=== PATIENT | female | born 1940 | race Caucasian/White ===

== ENCOUNTER → 2023-04-27 12:50 | Outpatient (REF) | payer MEDICARE, OTHER, SELFPAY ==
[2023-04-27 15:48] LABS: ALT (SGPT) 26 U/L (0-35); AST (SGOT) 37 U/L (14-36); Albumin 3.9 g/dl (3.5-5.0); Alkaline Phosphatase 71 U/L (38-126); Blood Urea Nitrogen 17 mg/dl (7-17); Calcium 9.4 mg/dl (8.4-10.2); Carbon Dioxide 30 mmol/L (22-30); Chloride 94 mmol/L (98-107); Glucose 115 mg/dl (70-99); HDL Cholesterol 54 mg/dl; LDL Cholesterol, Calculated 70 mg/dl; Potassium 4.1 mmol/L (3.5-5.1); Sodium 133 mmol/L (135-145); Total Bilirubin 1.1 mg/dl (0.2-1.3); Total Cholesterol 149 mg/dl (50-199); Total Protein 7.2 g/dl (6.3-8.2); Triglyceride 128 mg/dl (10-149); Very Low Density Lipoprotein 25 mg/dl (0-30); eGFR > 60.00
[2023-04-28 08:24] LABS: Glycohemoglobin (HgbA1c) 6.4 % (4.0-5.6)
== END ==
LOC: HWLAB 12:50
PROVIDERS: ATTENDING PHYSICIAN Internal Medicine
DX: E78.5 Hyperlipidemia, unspecified (principal); R73.01 Impaired fasting glucose
CPT/HCPCS: 36415; 80053; 80061; 83036

== ENCOUNTER → 2023-06-05 13:21 | Outpatient (REF) | payer MEDICARE, OTHER, SELFPAY ==
[2023-06-05 17:15] LABS: TSH Reflex To Free T4 1.28 uIU/ml (0.47-4.68)
[2023-06-05 17:34] LABS: Vitamin B12 996 pg/ml (239-931)
[2023-06-09 16:40] LABS: Syphilis/T. pallidum Ab Reflex Negative (Negative)
== END ==
LOC: HWLAB 13:21
PROVIDERS: ATTENDING PHYSICIAN Psychiatry & Neurology Neurology; FAMILY PHYSICIAN Internal Medicine
DX: G30.9 Alzheimer's disease, unspecified (principal); F02.80 Dementia in other diseases classified elsewhere, unspecified severity, without behavioral disturbance, psychotic disturbance, mood disturbance, and anxiety
CPT/HCPCS: 36415; 82607; 84443; 86780

== ENCOUNTER → 2023-06-09 13:20 | Outpatient (REF) | payer MEDICARE, OTHER, SELFPAY | LOC: PAVMRI 13:20 | PROVIDERS: ATTENDING PHYSICIAN Psychiatry & Neurology Neurology; FAMILY PHYSICIAN Internal Medicine | DX: G30.9 Alzheimer's disease, unspecified (principal); F02.80 Dementia in other diseases classified elsewhere, unspecified severity, without behavioral disturbance, psychotic disturbance, mood disturbance, and anxiety | CPT/HCPCS: 70553; A9575 ==

== ENCOUNTER 2023-10-29 20:01 | Inpatient (IN) | payer MEDICARE, OTHER, SELFPAY ==
[2023-10-29] VITALS (25 sets, daily range): BP systolic 104–267; BP diastolic 50–114; BMI 31.6; BMI 29.5
[2023-10-29 17:43] LABS: % Basophils 0.5 % (0-2); % Eosinophils 1.7 % (0-6); % Immature Granulocytes 0.2 % (0-0.5); % Lymphocytes 23.6 % (20.5-51.1); % Monocytes 9.3 % (1.7-9.3); % Neutrophils 64.7 % (42.2-75.2); Absolute Eosinophils 0.1 10^3/uL (0-0.7); Absolute Lymphocytes 1.4 10^3/uL (1.2-3.4); Absolute Monocytes 0.6 10^3/uL (0.1-0.6); Absolute Neutrophils 3.9 10^3/uL (1.4-6.5); Hematocrit 41.7 % (37.0-47.0); Hemoglobin 14.4 g/dL (12.0-16.0); Mean Corp Hgb Conc. 34.5 g/dL (33.0-37.0); Mean Corpuscular Hgb 31.8 pg (27.0-31.0); Mean Corpuscular Volume 92.1 fL (81.0-99.0); Mean Platelet Volume 9.6 fL (7.4-10.4); Nucleated Red Blood Cells % 0 %; Platelet Count 175 10^3/uL (130-400); Red Blood Cell Count 4.53 10^6/uL (4.20-5.40); Red Cell Dist. Width 12.3 % (11.5-14.5); White Blood Cell Count 6.1 10^3/uL (4.8-10.8)
[2023-10-29 17:50] LABS: ALT (SGPT) 26 U/L (0-35); AST (SGOT) 40 U/L (14-36); Albumin 4.5 g/dl (3.5-5.0); Alkaline Phosphatase 91 U/L (38-126); Blood Urea Nitrogen 11 mg/dl (7-17); Carbon Dioxide 30 mmol/L (22-30); Chloride 92 mmol/L (98-107); Estimated Creatinine Clearance 60 ml/min; Glucose 136 mg/dl (70-99); Potassium 3.9 mmol/L (3.5-5.1); Sodium 132 mmol/L (135-145); Total Protein 7.5 g/dl (6.3-8.2); eGFR > 60.00
[2023-10-29 17:53] LABS: COVID-19 Antigen Negative (Negative)
[2023-10-29 17:57] LABS: Urine Albumin Trace (Neg - Trace); Urine Bilirubin Negative (Negative); Urine Character Clear (Clear); Urine Color Yellow; Urine Glucose Negative (Negative); Urine Ketone 1+ (Negative); Urine Leukocyte Trace (Negative); Urine Nitrite Negative (Negative); Urine Occult Blood Negative (Negative); Urine Urobilinogen Negative (Neg - 1+)
[2023-10-29 18:18] LABS: Urine Red Blood Cell 0-2 /HPF (0-2)
[2023-10-29 18:19] LABS: Urine Bacteria Many (Negative); Urine White Cell 16-20 /HPF (0-5)
[2023-10-29] MEDS: LOPRESSOR 5 MG IV (18:58)
[2023-10-29] MEDS: NITRO-BID 1 INCH TOPICAL (19:00)
[2023-10-29] MEDS: LOPRESSOR 25 MG PO (19:00)
--- NOTE | 2023-10-29 19:08 | ED.GENMED ---
History of Present Illness
General
Chief Complaint: Weakness
Source: patient, records, spouse and family
Exam Limitations: none
Time Seen by Provider: 10/29/23 18:03
Nursing documentation reviewed up to this point in time: agreed with
History of Present Illness
History of Present Illness:
Patient is an 83-year-old female who presents to the emergency department After having a feeling of dread and near . Patient was excessively weak with feeling a knot in her chest. This occurred at 3:30 PM. Patient was hot and cold. Patient
denied any diaphoresis. Patient has had a chronic cough with postnasal drip that seems to have gotten worse recently. Patient complained of feeling short of breath. Patient denied any chest pain or palpitations. Patient denied headache, visual
disturbances, speech difficulties, focal weakness or ataxia. Patient felt very weak and continues to feel weak. Patient chronically has diminished appetite but denies any nausea, vomiting or diarrhea. Patient denies any abdominal pain. Patient
denies any leg pain or swelling.
Past History
Past History
ED Past Medical History: HTN, Hypercholesterolemia and Other (Patient has a history of back pain, scoliosis, spinal stenosis,PNA, pancreatic cyst)
ED Past Surgical History: and Other (history of a lumbar spinal fusion, cervical fusion)
Patient has exhibited threatening behavior?: No
PSI?: No
Social History
Tobacco: Non-smoker
Alcohol: None
Drug: None
Personal:
Living: with family
Employment: Retired
Review of Systems
Review of Systems
All Other Systems: ROS reviewed and negative except as documented in HPI and ROS
Constitutional: Reports fatigue; Denies fever or chills
EENT: Reports runny nose
Respiratory: Reports cough and trouble breathing
Cardiac: Reports no symptoms
ABD/GI: Reports constipated and anorexia; Denies abdominal pain, nausea, vomiting or diarrhea
: Reports no symptoms
Musculoskeletal: Denies edema
Skin: Reports no symptoms
Neurological: Reports no symptoms
Hematologic/Lymphatic: Reports no symptoms
Phy Exam
Physical Exam
Physical Exam:
Physical Exam
General: mild to moderate distress, alert and appropriate, well nourished, well hydrated
HENT: Normocephalic, supple with no lymphadenopathy, no thyromegaly
Eyes: Clear sclera, conjuctiva without injection
Heart: Regular rhythm and rate. No S3, S4. No murmur. No NVD, bruit
Lungs: No respiratory distress, no stridor, lung sounds clear and equal bilaterally
Abdomen: Soft, nontender, no organomegaly, BS good
Neuro: Alert and usual mental status, CN II - XII intact, no motor focality
Skin: no rash
Psychiatric: well kept. interactive and cooperative
Extremities: No edema, cyanosis, tenderness
Course
Orders/Labs/Results
Orders:
Orders
10/29/23 17:20
Electrocardiogram (*1) Urgent
Reason for Study: Fatigue / Weakness
10/29/23 17:21
EKG- Treatment ONCE
10/29/23 17:23
COVID-19 Antigen Urgent
Source: Nasal Swab
Complete Blood Count/With Diff Urgent
Comprehensive Metabolic Panel Urgent
Urinalysis Reflex To Culture Urgent
Date Specimen was Collected: 10/29/23
Time Specimen was Collected: 17:20
Urine Microscopic Reflex Cult Urgent
Urine Culture Urgent
ALEXANDER Source: U
Specimen Description:
Date Specimen was Collected: 10/29/23
Time Specimen was Collected: 17:20
10/29/23 18:08
CT Head W/o Iv Contrast Urgent
Comment:
Reason For Exam: hnt, nausea
10/29/23 18:39
Electrocardiogram (*1) Urgent
Reason for Study: Hypertension, Benign
Troponin I Urgent
10/29/23 18:49
Metoprolol [Lopressor] 25 mg PO NOW STA
Metoprolol [Lopressor] 5 mg IV NOW STA
Nitroglycerin Ointment [Nitro-Bid] 1 inch TOPICAL NOW STA
Abnormal Lab Results
10/29/23
17:23
MCH 31.8 H pg
(27.0-31.0)
Sodium 132 L mmol/L
(135-145)
Chloride 92 L mmol/L
(98-107)
Creatinine 0.5 L mg/dL
(0.6-1.0)
Glucose 136 H mg/dl
(70-99)
AST 40 H U/L
(14-36)
Urine Ketones 1+ A
(Negative)
Leukocyte Esterase Rfl Trace A
(Negative)
Urine WBC (Reflex) 16-20 A /HPF
(0-5)
Urine Bacteria (Reflex) Many A
(Negative)
10/29/23 17:23
10/29/23 17:23
Vital Signs
Initial and Last Documented VS:
Initial Vital Signs
Temp Pulse Resp BP Pulse Ox
97.9 F 92 14 227/94 95
10/29/23 17:13 10/29/23 17:13 10/29/23 17:13 10/29/23 17:13 10/29/23 17:13
Last Documented Vital Signs
Temp Pulse Resp BP Pulse Ox
97.9 F 89 19 187/80 95
10/29/23 17:13 10/29/23 19:00 10/29/23 18:45 10/29/23 19:00 10/29/23 18:45
*Radiology
Radiology exam reviewed: preliminary read by ED provider (CT of the head does not show anything acute)
*Pulse Oximetry
Patient hypoxic: no
*EKG
Interpreted by ED Provider?: Yes
EKG Intrepretation Date: 10/29/23
EKG Intrepretation Time: 19:14
Interpretation: abnormal
Comparison EKG: changes noted
Heart Rate: 74
Rate: normal
Rhythm: sinus
[place]: left axis deviation
Interval: normal QT interval and first degree heart block
QRS Pattern: left vent hypertrophy
Ischemia: no ischemia
*Production Machine Operator Interpretation
Rate: normal
Interpretation: normal
Heart Rate: 82
Rhythm: sinus
*Critical Care Note
Total Time (30-74mins, 75-104mins- exclusive of procedures): 45 minutes
ED Attending Note
-
Portions of this chart may have been created with voice recognition software.� Occasional wrong word or��sound alike� substitutions may have occurred due to the inherent limitations of voice recognition software.
Discharge Plan
Departure
Patient Disposition: Admit
Date of Disposition: 10/29/23
Time of Disposition: 19:14
Admit to: Telemetry
Presentation/result/management discussed w/ accepting MD/DO: Hospitalist
Patient with high blood pressure during this ER visit?: Yes
Condition: Serious
Covid-19: Negative COVID-19
Discharge Problem:
Hypertension, Chest pain
Prescriptions:
No Action
atorvastatin 10 MG tablet
40 mg PO DAILY
hydrochlorothiazide 12.5 MG capsule
12.5 mg PO QPM
aspirin [Lo-Dose Aspirin] 81 MG tablet,delayed release (DR/EC)
81 mg PO QPM
fluoxetine 20 MG capsule
20 mg PO DAILY
Centrum Adults Tablet
1 tab PO DAILY
cephalexin 500 MG capsule
500 mg PO BID Qty: 14 0RF
Referrals:
UNKNOWN - PT DOES,NOT KNOW [Family Provider] -
Interventions
Interventions:
*Neglect/Abuse Screening Last Done: 10/29/23 17:09
ED- Fall Risk Assessment Last Done: 10/29/23 17:27
*ED COVID-19 Vaccine History Last Done: 10/29/23 17:09
ED- Cardiac Assessment Last Done: 10/29/23 17:27
ED- Neurological Assessment Last Done: 10/29/23 17:27
ED- Pulmonary Assessment Last Done: 10/29/23 17:27
Discharge Date and Time
Print Language: NIUEAN
[2023-10-29 19:41] LABS: Troponin I < 0.012 ng/ml
--- NOTE | 2023-10-29 19:42 | HPS.HSE ---
Addendum entered and electronically signed by Rosie Vela MD 10/29/23 20:52:
Patient is DNR/DNI.
Original Note:
Family Physician
-
Family Physician: NOT KNOW UNKNOWN - PT DOES
Chief Complaint
-
chest knot, weakness
History of Present Illness
83-year-old female past medical history of whitecoat hypertension not on medication in 20 years, hypercholesteremia, spinal stenosis, scoliosis, hepatic steatosis presenting with feeling of dread and as if she was going to . She felt very weak
with the feeling of a knot in her chest which started this afternoon. Pain did not radiate anywhere. She felt intermittently hot and cold but denies sweating. She has chronic cough with postnasal drip that is recently gotten worse. She
complained of shortness of breath with the chest pain. She denies any palpitations. She denies headache, visual symptoms, speech difficulty, focal weakness or ataxia or numbness or tingling. No facial droop was noted. She has chronically
decreased appetite and had some nausea and dry heaving without vomiting or diarrhea. She denies any abdominal pain. She denies any lower extremity edema.
She was given nitroglycerin which improved chest pain.
She had whitecoat hypertension more than 20 years ago but has not been on medication since then.
She denies smoking or alcohol use.
Her mother had a heart attack. Her father had a stroke.
Medical History
Past Medical History
Past Medical History: Reports Other (whitecoat hypertension not on medication in 20 years, hypercholesteremia, spinal stenosis, scoliosis, hepatic steatosis)
Past Surgical History: Reports Orthopedic
Social History
Tobacco: Non-smoker
Alcohol: None
Drug: None
Family History
Family History: Other (Her mother had a heart attack. Her father had a stroke.)
Allergies / Home Medications
Allergies reflects when Allergies were last updated in [email or web address]@.
Home Medications with original date entered in [email or web address]@
Allergy/Medication List:
Allergies
Allergy/AdvReac Type Severity Reaction Status Date / Time
codeine Allergy Vomiting Verified 10/29/23 17:12
diazepam [From Valium] Allergy hallucinati Verified 10/29/23 17:12
ons
hydroxyzine HCl Allergy vomiting Verified 10/29/23 17:12
[From Vistaril]
hydroxyzine pamoate Allergy vomiting Verified 10/29/23 17:12
[From Vistaril]
meperidine HCl [From Demerol] Allergy vomiting Verified 10/29/23 17:12
morphine [Morphine] Allergy PT STATES Verified 10/29/23 17:12
IT WILL
KILL HER
oxycodone HCl [From Percocet] Allergy CHANGE IN Verified 10/29/23 17:12
LOC
propoxyphene napsylate Allergy vomiting Verified 10/29/23 17:12
[From Darvocet-N 100]
Home Medications
fluoxetine 20 mg capsule 20 mg PO DAILY 08/02/18
aspirin 81 mg chewable tablet 81 mg PO DAILY 10/29/23
memantine 10 mg tablet 10 mg PO BID 10/29/23
inmdtppb-eeb-dcusm acid 0.4 mg-lycopene 300 mcg-lutein 250 mcg tablet (Centrum Silver) 1 tab PO DAILY 10/29/23
Review of Systems
-
History Source: Patient
A 12 point ROS was completed and negative except as noted: Yes
Constitutional: Reports No Symptoms
EENT: Reports No Symptoms
Respiratory: Reports See HPI
Cardiac: Reports See HPI
Abdomen/GI: Reports No Symptoms
: Reports No Symptoms
Musculoskeletal: Reports No Symptoms
Skin: Reports No Symptoms
Neurological: Reports See HPI
Endocrine: Reports No Symptoms
Hematologic/Lymphatic: Reports No Symptoms
Psych: Reports No Symptoms
Physical Exam
Vital Signs
Vital Signs
Temp Pulse Resp BP Pulse Ox
97.9 F 89 19 187/80 95
10/29/23 17:13 10/29/23 19:00 10/29/23 18:45 10/29/23 19:00 10/29/23 18:45
Physical Exam
General: Well Developed, Well Nourished and No Apparent Distress
HEENT: NormoCephalic, Moist mucous membranes and Atraumatic
Respiratory: Clear
Cardiac: S1/S2 and Regular Rhythm; No Murmur or Rub
GI: Soft, Non Tender, Non Distended and Normal Bowel Sounds; No Organomegaly
Rectal: Deferred by Provider
Musculoskeletal: No Clubbing, No Cyanosis and No Edema
Skin: No Rash
Neuro: Nonfocal/grossly intact
Laboratory Results
-
10/29/23 17:23
10/29/23 17:23
Laboratory Results
Total Bilirubin 1.0 mg/dl (0.2-1.3) 10/29/23 17:23
AST 40 U/L (14-36) H 10/29/23 17:23
ALT 26 U/L (0-35) 10/29/23 17:23
Alkaline Phosphatase 91 U/L (38-126) 10/29/23 17:23
Troponin I < 0.012 ng/ml 10/29/23 19:08
Data Reviewed
-
Lab Data: Labs Reviewed by me
Old Records: Reviewed
Impression/Plan
-
IMPRESSION:
PLAN:
# Hypertensive urgency/emergency associate with chest discomfort
#History of white coat hypertension not on treatment
-Chest discomfort now resolved
-No signs or symptoms of CVA
-EKG showing nonspecific T wave inversions
-CT head shows no acute abnormality
-Blood pressure as high as 267/113
-Troponin pending
-Check chest x-ray
-IV hydralazine to be given, will need to start nitroglycerin drip if no improvement
-Continue aspirin
Hypercholesterolemia
-Continue statin
Spinal stenosis status post spine surgeries
Scoliosis
Dementia
-Continue memantine
Anxiety/depression
-Continue fluoxetine
Hepatic steatosis
Full code
DVT prophylaxis�heparin
Regular diet
[2023-10-29] MEDS: APRESOLINE 10 MG IV (20:05)
[2023-10-29] MEDS: LOW STRENGTH ASPIRIN 324 MG PO (20:06)
[2023-10-29] MEDS: NITROGLYCERIN PREMIX 250 IV (22:04)
[2023-10-29] MEDS: NAMENDA PO (22:09)
[2023-10-29] MEDS: HEPARIN 5000 UNITS SC (22:09)
--- NOTE | 2023-10-29 22:20 | PTCARENOTE ---
Pt arrived to floor from ED, received verbal report from DIETER Padilla. AAOx3, forgetful @ x's. Resting and arouses to verbal stimuli. NS on monitor, hr 60-80s. Pt c/o nausea and vomited twice. Nausea relieved per pt. BP 188/81 and started on
nitroglycerine gtt to keep SBP >160. running @ 5 mcg/min. Titrated per protocol (see worklist). Pt resting in bed with family at bedside and call berg in reach.
[2023-10-29 23:09] LABS: Troponin I < 0.012 ng/ml
[2023-10-30] VITALS (34 sets, daily range): BP systolic 99–206; BP diastolic 40–108; BMI 29.5
--- NOTE | 2023-10-30 00:35 | PTCARENOTE ---
At 2315 pt's BP was 181/81, gtt increased per protocol (see worklist). BP decreased over next hour and @ 00:00 it was 108/55, gtt put on hold. Reached out to Cristela, INSPECTOR PACKAGER and Rx obtained to hold gtt.
[2023-10-30 04:11] LABS: % Basophils 0.3 % (0-2); % Immature Granulocytes 0.4 % (0-0.5); % Lymphocytes 14.3 % (20.5-51.1); Absolute Lymphocytes 1.1 10^3/uL (1.2-3.4); Absolute Monocytes 0.6 10^3/uL (0.1-0.6); Absolute Neutrophils 6.2 10^3/uL (1.4-6.5); Hematocrit 41.3 % (37.0-47.0); Hemoglobin 14.6 g/dL (12.0-16.0); Mean Corp Hgb Conc. 35.4 g/dL (33.0-37.0); Mean Corpuscular Hgb 31.7 pg (27.0-31.0); Mean Corpuscular Volume 89.8 fL (81.0-99.0); Mean Platelet Volume 9.4 fL (7.4-10.4); Nucleated Red Blood Cells % 0 %; Platelet Count 200 10^3/uL (130-400); Red Cell Dist. Width 12.2 % (11.5-14.5)
[2023-10-30 04:30] LABS: ALT (SGPT) 25 U/L (0-35); AST (SGOT) 38 U/L (14-36); Albumin 4.4 g/dl (3.5-5.0); Alkaline Phosphatase 79 U/L (38-126); Blood Urea Nitrogen 15 mg/dl (7-17); Calcium 9.3 mg/dl (8.4-10.2); Carbon Dioxide 23 mmol/L (22-30); Chloride 92 mmol/L (98-107); Estimated Creatinine Clearance 58 ml/min; Glucose 117 mg/dl (70-99); Potassium 4.5 mmol/L (3.5-5.1); Sodium 129 mmol/L (135-145); Total Protein 7.3 g/dl (6.3-8.2); eGFR > 60.00
[2023-10-30 04:35] LABS: Troponin I < 0.012 ng/ml
--- NOTE | 2023-10-30 08:19 | W.PN.HOSP.TC ---
Today's Communication/Plan
-
Continue beta doc
Assessment / Plan
Assessment / Plan
Physical Exam
General: Well Developed, Well Nourished and No Apparent Distress
HEENT: Normocephalic, Moist mucous membranes and Atraumatic
Respiratory: Clear
Cardiac: S1/S2 and Regular Rhythm; No Murmur or Rub
GI: Soft, Non Tender, Non Distended and Normal Bowel Sounds
Musculoskeletal: No Cyanosis and No Edema
Skin: Warm. Dry.
Neuro: Nonfocal/grossly intact

Assessment/Plan
#Hypertensive urgency/emergency associate with chest discomfort and feeling of dread
#History of white coat hypertension not on treatment
-Chest discomfort now resolved
-No signs or symptoms of CVA
-EKG showing nonspecific T wave inversions
-CT head shows no acute abnormality
-Blood pressure as high as 267/113 around the time of admission
-Troponins negative so far. EKG did not suggest ACS.
-Continue aspirin
-Nitorglycerin drip given
-Cardiology consulted
-NTG paste 0.5 inch and Lopressor 12.5mg BID ordered. Appreciate cardiology.
-Check echocardiogram
#Weakness
-Possibly secondary to severe hypertension
-Patient does have bacteriuria, but will treat this as asymptomatic bacteriuria for now and monitor patient
#Hyponatremia
-Urine sodium, and urine&serum osmoles ordered
-Given sodium 129 and fatigue/weakness, consulted nephrology, appreciate recommendations
-PO FR 40 ounces daily
Hypercholesterolemia
-Continue statin
Spinal stenosis status post spine surgeries
Scoliosis
Dementia
-Continue memantine
Anxiety/depression
-Continue fluoxetine
Hepatic steatosis
Full code
DVT prophylaxis�heparin
Regular diet
Anticipated Discharge: 24 - 48 hours
Subjective/Interval History
-
Date of Service: October 30, 2023
Patient was seen and examined. Her systolic blood pressure increased to the 200s this morning and she was more tired. She denied any chest pain this morning.
Objective Data
-
Labs:
Laboratory Results
10/30/23
03:41
WBC 8.0
Hgb 14.6
Hct 41.3
Plt Count 200
Sodium 129 L
Potassium 4.5
Chloride 92 L
Carbon Dioxide 23
BUN 15
Creatinine 0.5 L
Glucose 117 H
Calcium 9.3
Total Bilirubin 1.0
AST 38 H
ALT 25
Alkaline Phosphatase 79
Vital Signs:
Vital Signs
Temp Pulse Resp BP Pulse Ox
98.3 F 57 14 151/57 97
10/30/23 07:30 10/30/23 06:00 10/30/23 06:00 10/30/23 06:00 10/30/23 06:00
I&O
10/29/23 10/30/23 10/31/23
06:59 06:59 06:59
Output Total 800 / 800
Balance -800 / -800
[2023-10-30] MEDS: PROZAC 20 MG PO (10:05)
[2023-10-30] MEDS: THERAGRAN 1 TABLET PO (10:06)
[2023-10-30] MEDS: LOW STRENGTH ASPIRIN 81 MG PO (10:06)
[2023-10-30] MEDS: HEPARIN 5000 UNITS SC ×2 (10:06→21:13)
[2023-10-30] MEDS: NAMENDA 10 MG PO ×2 (10:06→21:12)
[2023-10-30] MEDS: NITROGLYCERIN PREMIX 250 IV (10:48)
--- NOTE | 2023-10-30 10:59 | PTCARENOTE ---
Patient's BP's more elevated this AM 196/69, 199/74. Dr. Jackson made aware. Order obtained to restart Nitro drip. Drip infusing at 5mcg/hr/ 3.8/mls/hr via right wrist INT. BP at this time 186/61. BP 5 minutes later 149/78. Patient denies
any chest pain or discomfort. Patient resting in bed. Family in room at bedside.
--- NOTE | 2023-10-30 12:20 | CON.CAR ---
Addendum entered and electronically signed by Dionte Curiel MD 10/30/23 14:03:
I saw and examined the patient.
The BUSINESS DIRECTOR's note was reviewed and I agree with the note.
83-year-old woman with a history of dementia, spinal stenosis, hyperlipidemia. Also prior history of hypertension but has not been on medications for many years. Patient presented with fatigue and not feeling well very vague symptoms was noted to
be hypertensive on presentation there was also report of her having some chest discomfort she reports a focal area of chest discomfort which is currently not present and currently without reproducible pain. Initially systolic blood pressures were
in the 200s in the ER she was given some IV nitro but is only been on 5 mcg and currently systolic blood pressures are in the 150s. Troponins have been negative.
-Hypertension unclear what her baseline blood pressure is she was severely hypertensive and this may have also been driven by the fact that she was not feeling well
-Agree with changing from IV nitro to Nitropaste as we assess her chest discomfort and troponins
-Metoprolol 12.5 twice daily
-Serial troponins.
-Etiology of chest symptoms are unclear. Would continue with treatment plan noted above
-Chief complaint was fatigue weakness and not feeling well. Exact cause of that symptom is not clear UTI and hyponatremia may be contributing factors defer to hospitalist regarding treatment of both of these issues..
Original Note:
Consultation
Consultation Request
Date/Time Consultation Requested: 10/30/23 10:45a
Date/Time Consultation Performed: 10/30/23 11:30a
Requesting Provider: Dr. Jackson
Performing Provider: DORON Pinto for Dr. Curiel
Reason for Consultation: HTN and chest pain
Medical History
-
Chief Complaint: weakness, chest pain
History of Present Illness:
Mrs. Moreno is an 83 yo female with HTN (not on medication for 20 years), HLD, dementia, spinal stenosis, scoliosis, and hepatic steatosis, who presents to the ER from home with c/o fatigue/weakness and chest pain described as a knot in her
midsternal chest. Chest pain lasted 30 mins and resolved after SL NTG in the ER, so she was started on a IV NTG gtt. She also had HTN emergency with BP 227/94. She is admitted to the hospitalist service and we are consulted for chest pain and
HTN. Her BP has improved with IV NTG gtt. She and her family do not remember which medications she was previously on for HTN. Currently she denies any cardiac complaints.
Past Medical History
Past Medical History: Other (as above)
Past Surgical History: Orthopedic
Social History
Tobacco: Non-Smoker
Alcohol: None
Personal:
Living: With Family
Family History
Family History: Reviewed & Not Pertinent
Allergies / Home Medications
Allergy/AdvReac Type Severity Reaction Status Date / Time
codeine Allergy Vomiting Verified 10/29/23 17:12
diazepam [From Valium] Allergy hallucinati Verified 10/29/23 17:12
ons
hydroxyzine HCl Allergy vomiting Verified 10/29/23 17:12
[From Vistaril]
hydroxyzine pamoate Allergy vomiting Verified 10/29/23 17:12
[From Vistaril]
meperidine HCl [From Demerol] Allergy vomiting Verified 10/29/23 17:12
morphine [Morphine] Allergy PT STATES Verified 10/29/23 17:12
IT WILL
KILL HER
oxycodone HCl [From Percocet] Allergy CHANGE IN Verified 10/29/23 17:12
LOC
propoxyphene napsylate Allergy vomiting Verified 10/29/23 17:12
[From Darvocet-N 100]
�Medication �Instructions �Recorded �Confirmed �Type
fluoxetine 20 mg capsule 20 mg PO DAILY Mental 08/02/18 10/29/23 History
Health/Anxiety
aspirin 81 mg chewable tablet 81 mg PO DAILY Blood Clot 10/29/23 10/29/23 History
Prevention/Tx
memantine 10 mg tablet 10 mg PO BID Mental Health/Anxiety 10/29/23 10/29/23 History
jxmzwltq-qfl-mrkrr acid 0.4 1 tab PO DAILY Supplement 10/29/23 10/29/23 History
mg-lycopene 300 mcg-lutein 250 mcg
tablet (Centrum Silver)
Review of Systems
-
History Source: Patient
All other systems: Negative unless noted
Physical Exam
Vital Signs
Temp Pulse Resp BP Pulse Ox
98.3 F 62 15 159/59 91
10/30/23 07:30 10/30/23 12:00 10/30/23 12:00 10/30/23 12:00 10/30/23 12:00
Lab Results
10/30/23 03:41
10/30/23 03:41
Troponin I < 0.012 ng/ml 10/30/23 03:41
Physical Exam
General: Well Developed and No Apparent Distress
HEENT: Normocephalic, Anicteric and Moist Mucous Membranes
Respiratory: Clear and Non Labored Respirations
Cardiac: S1/S2 and Regular Rhythm
Breast: Deferred by me
GI: Soft, Non Tender, Non Distended and Normal Bowel Sounds
Rectal: Deferred by Provider
Genito-urinary: Clear Urine
Musculoskeletal: No Clubbing, No Cyanosis and No Edema
Skin: Warm and Dry
Neuro: AO x 3
Psych: Calm
Impression / Plan
-
Chest pain - acute in the setting of HTN emergency.
- resolved with SL NTG in the ER and no recurrence.
- troponin x3 <0.012 and EKG w/o ischemia.
- treat HTN.
- check echo.
HTN emergency - BP 227/94 on arrival to ER.
- HTN not treated for 20 years.
- improved with IV Nitro gtt, now off.
- NTG paste 0.5 inch and Lopressor 12.5mg BID ordered.
- monitor closely.
- check echo.
- head CT negative.
Dementia - followed by neurology.
- on [place].
Data Reviewed
-
EKG: Tracing Personally Visualized and interpreted (SR with first degree AVB, 82 bpm, left axis and LVH.)
CT Scan: Report Reviewed by me (head: negative for acute abn)
Medical Tests (Nuc Med, Echo etc): Report Reviewed by me (echo 11/2020: nl biventricular size/function, no RWMA, mild cLVH, mild/mod MR.)
Labs: Labs Reviewed by me
Old Records: Reviewed
[2023-10-30 12:36] LABS: Osmolality Serum 267 mOsm/kg (275-300)
--- NOTE | 2023-10-30 12:50 | PTCARENOTE ---
Nitro drip discontinues as per cardiology. Nitro paste and lopressor ordered.
[2023-10-30] MEDS: NITRO-BID 0.5 INCH TOPICAL (12:51)
[2023-10-30 12:52] LABS: Troponin I < 0.012 ng/ml
[2023-10-30] MEDS: LOPRESSOR 12.5 MG PO ×2 (12:52→22:40)
[2023-10-30] MEDS: APRESOLINE 10 MG IV (14:53)
--- NOTE | 2023-10-30 14:53 | CM ---
Reviewed the chart notes and spoke with the patient and her daughter at the bedside. The patient resides with her spouse in a split level home with no steps to enter. The patient has two stair glides to upper levels. The patient uses a cane in
home and a rolling walker outside. The patient has a shower chair and grab bars. The patient has not had VN nor been to a SNF. The patient confirmed her pharmacy of choice is the [facility]. CM continues to be available to patient/family
and is monitoring medical plan for needs at discharge.
Plan: Discharge plans will depend on the patient's progress.
--- NOTE | 2023-10-30 16:20 | PTCARENOTE ---
Nitro drip d/c as per cardiology. Order obtained for Nitro paste and lopressor. Medicated patient with prn dose of hydralazine for sbp > 170. SB's have been below 160 since. Appetite poor and patient has been drowsy all day. IV fluids infusing as
per nephrology. Urine studies sent. Family in room at bedside.
--- NOTE | 2023-10-30 17:00 | W.CON.NEPH ---
Consultation
-
Date/Time Consultation Requested: 10/30/23 1500
Date/Time Consultation Performed: 10/30/23 1700
Requesting Provider: Dr. Sutton
Performing Provider: Dr. Wallace
Reason for Consultation: Hyponatremia
Medical History
-
Chief Complaint: Fatigue, chest pain
History of Present Illness:
This is an 83-year-old female who has hypertension though not on medications, chronic hyponatremia also on no medications nor apparently any fluid restriction, who does have anxiety depression on Prozac. She came to the emergency room because of
fatigue and weakness with chest pain and midsternal discomfort. She was on a nitroglycerin drip in the emergency room. She had significant hypertension with blood pressures over 200 systolic. She was given IV medications to control her blood
pressures. Her sodium level typically runs around 132 as an outpatient and was noted to be 125 in the emergency room for which we are asked to assist with management of. Her family says that she has not felt well with nausea and retching as well
as with poor oral intake at least over the last day and a half. She also appears to be quite constipated according to nursing.
Past Medical History
Hypertension, hyperlipidemia, dementia, spinal stenosis, scoliosis, fatty liver, depression anxiety, orthopedic surgery
Social History
Tobacco: Non-Smoker
Alcohol: None
Family History
Family History: Not Pertinent
Allergies / Home Medications
Allergy/AdvReac Type Severity Reaction Status Date / Time
codeine Allergy Vomiting Verified 10/29/23 17:12
diazepam [From Valium] Allergy hallucinati Verified 10/29/23 17:12
ons
hydroxyzine HCl Allergy vomiting Verified 10/29/23 17:12
[From Vistaril]
hydroxyzine pamoate Allergy vomiting Verified 10/29/23 17:12
[From Vistaril]
meperidine HCl [From Demerol] Allergy vomiting Verified 10/29/23 17:12
morphine [Morphine] Allergy PT STATES Verified 10/29/23 17:12
IT WILL
KILL HER
oxycodone HCl [From Percocet] Allergy CHANGE IN Verified 10/29/23 17:12
LOC
propoxyphene napsylate Allergy vomiting Verified 10/29/23 17:12
[From Darvocet-N 100]
�Medication �Instructions �Recorded �Confirmed �Type
fluoxetine 20 mg capsule 20 mg PO DAILY Mental 08/02/18 10/29/23 History
Health/Anxiety
aspirin 81 mg chewable tablet 81 mg PO DAILY Blood Clot 10/29/23 10/29/23 History
Prevention/Tx
memantine 10 mg tablet 10 mg PO BID Mental Health/Anxiety 10/29/23 10/29/23 History
kmenyyyb-ryx-szchv acid 0.4 1 tab PO DAILY Supplement 10/29/23 10/29/23 History
mg-lycopene 300 mcg-lutein 250 mcg
tablet (Centrum Silver)
Review of Systems
-
Abdominal/midsternal discomfort. Nausea. Decreased oral intake. Constipation.
All other systems: Negative unless noted
Physical Exam
Vital Signs
Vital Signs
Temp Pulse Resp BP Pulse Ox
98.3 F 67 20 186/73 95
10/30/23 11:14 10/30/23 14:00 10/30/23 14:00 10/30/23 14:00 10/30/23 14:00
Lab Results
WBC 8.0 10^3/uL (4.8-10.8) 10/30/23 03:41
RBC 4.60 10^6/uL (4.20-5.40) 10/30/23 03:41
Hgb 14.6 g/dL (12.0-16.0) 10/30/23 03:41
Hct 41.3 % (37.0-47.0) 10/30/23 03:41
Plt Count 200 10^3/uL (130-400) 10/30/23 03:41
Sodium 129 mmol/L (135-145) L 10/30/23 03:41
Potassium 4.5 mmol/L (3.5-5.1) 10/30/23 03:41
Chloride 92 mmol/L (98-107) L 10/30/23 03:41
Carbon Dioxide 23 mmol/L (22-30) 10/30/23 03:41
BUN 15 mg/dl (7-17) 10/30/23 03:41
Creatinine 0.5 mg/dL (0.6-1.0) L 10/30/23 03:41
eGFR > 60.00 10/30/23 03:41
Glucose 117 mg/dl (70-99) H 10/30/23 03:41
Calcium 9.3 mg/dl (8.4-10.2) 10/30/23 03:41
Albumin 4.4 g/dl (3.5-5.0) 10/30/23 03:41
Physical Exam
Patient is awake alert oriented and in no distress. Mood and affect were pleasant, insight and judgment were good. Pupils are equal round and reactive to light, extraocular movements are intact, sclera were anicteric. Hearing was normal, ears and
nose are intact. Oropharynx was clear. Neck was supple with trachea midline and no thyromegaly. Heart was regular rate and rhythm without rubs. Lower extremities without edema. Lungs were with rales at the bases to auscultation bilaterally and
with normal excursion. Abdomen was soft, nontender, with normal active bowel sounds, and no hepatosplenomegaly. Skin was without rash and with normal turgor.
Data Reviewed
-
Radiology: Image Personally Visualized and interpreted (Chest x-ray on October 29, 2023 by my reading shows no acute disease right basilar scarring)
Medical Tests (Nuc Med, Echo etc): Image Personally Visualized and interpreted (EKG on October 29, 2023 by my read shows normal sinus rhythm first-degree AV block, left axis deviation LVH)
Labs: Labs Reviewed by me
Old Records: Reviewed
Assessment/Plan
-
Assessment
Acute on chronic hyponatremia
Hypertension with hypertensive urgency
Chest pain
Constipation
Nausea vomiting
Plan
Check urine studies
She does appear to be volume depleted. We will try saline 100 cc/h this will be modified pending urine studies
I suspect the poor oral intake with nausea has likely resulted in the worsening hyponatremia
I will check a abdominal flatplate given her significant constipation or aggressive bowel regimen may be required
Follow BMP later tonight
Discussed with family
[2023-10-30] MEDS: NSS 1000 IV (17:28)
[2023-10-30] MEDS: FLUSH (NSS) 1 FLUSH IV (17:29)
[2023-10-30 17:54] LABS: Osmolality Urine 761 mOsm/kg (300-900)
[2023-10-30 18:22] LABS: Urine Sodium 66 mmol/L (30-90)
[2023-10-30] MEDS: ZOFRAN 4 MG IV (19:31)
[2023-10-30] MEDS: DULCOLAX 10 MG RECTAL (21:13)
[2023-10-30 21:33] LABS: Blood Urea Nitrogen 23 mg/dl (7-17); Calcium 8.8 mg/dl (8.4-10.2); Carbon Dioxide 25 mmol/L (22-30); Chloride 90 mmol/L (98-107); Estimated Creatinine Clearance 58 ml/min; Glucose 143 mg/dl (70-99); Potassium 4.7 mmol/L (3.5-5.1); Sodium 125 mmol/L (135-145); eGFR > 60.00
[2023-10-30] MEDS: SODIUM CHLORIDE 3% 250 IV (22:40)
[2023-10-31] VITALS (14 sets, daily range): BP systolic 91–178; BP diastolic 47–73; BMI 29.7
[2023-10-31 04:00] LABS: Hematocrit 39.4 % (37.0-47.0); Hemoglobin 13.9 g/dL (12.0-16.0); Mean Corp Hgb Conc. 35.3 g/dL (33.0-37.0); Mean Corpuscular Hgb 32.8 pg (27.0-31.0); Mean Corpuscular Volume 92.9 fL (81.0-99.0); Platelet Count 190 10^3/uL (130-400); Red Blood Cell Count 4.24 10^6/uL (4.20-5.40); Red Cell Dist. Width 12.4 % (11.5-14.5); White Blood Cell Count 10.7 10^3/uL (4.8-10.8)
[2023-10-31 04:22] LABS: Blood Urea Nitrogen 21 mg/dl (7-17); Carbon Dioxide 25 mmol/L (22-30); Chloride 93 mmol/L (98-107); Estimated Creatinine Clearance 58 ml/min; Glucose 109 mg/dl (70-99); Potassium 4.1 mmol/L (3.5-5.1); Sodium 128 mmol/L (135-145); eGFR > 60.00
--- NOTE | 2023-10-31 08:56 | W.PN.NEPH.PH ---
Today's Communication / Plan
-
3%
Assessment/Plan
-
Assessment
Acute on chronic hyponatremia
Hypertension with hypertensive urgency
Chest pain
Constipation
Nausea vomiting
Plan
3% again today
Serial BMP
Fluid restriction continues
-
-
Date of Service: October 31, 2023
CC / HPI / ROS
-
Chief Complaint:
Hyponatremia
History of Present Illness:
Sodium up to 128 with hypertonic saline overnight
Creatinine stable at baseline
Blood pressure stable and improved
Review of Systems:
No chest pain or shortness of breath
Labs
-
Labs:
WBC 10.7 10^3/uL (4.8-10.8) 10/31/23 03:24
RBC 4.24 10^6/uL (4.20-5.40) 10/31/23 03:24
Hgb 13.9 g/dL (12.0-16.0) 10/31/23 03:24
Hct 39.4 % (37.0-47.0) 10/31/23 03:24
Plt Count 190 10^3/uL (130-400) 10/31/23 03:24
Sodium 128 mmol/L (135-145) L 10/31/23 03:24
Sodium Cancelled 10/31/23 03:24
Potassium 4.1 mmol/L (3.5-5.1) 10/31/23 03:24
Potassium Cancelled 10/31/23 03:24
Chloride 93 mmol/L (98-107) L 10/31/23 03:24
Chloride Cancelled 10/31/23 03:24
Carbon Dioxide 25 mmol/L (22-30) 10/31/23 03:24
Carbon Dioxide Cancelled 10/31/23 03:24
BUN 21 mg/dl (7-17) H 10/31/23 03:24
BUN Cancelled 10/31/23 03:24
Creatinine 0.6 mg/dL (0.6-1.0) 10/31/23 03:24
Creatinine Cancelled 10/31/23 03:24
eGFR > 60.00 10/31/23 03:24
eGFR Cancelled 10/31/23 03:24
Glucose 109 mg/dl (70-99) H 10/31/23 03:24
Glucose Cancelled 10/31/23 03:24
Calcium 9.0 mg/dl (8.4-10.2) 10/31/23 03:24
Calcium Cancelled 10/31/23 03:24
Albumin 4.4 g/dl (3.5-5.0) 10/30/23 03:41
Physical Exam
-
Vital Signs:
Vital Signs
Temp Pulse Resp BP Pulse Ox
98.8 F 63 14 149/47 91
10/31/23 03:28 10/31/23 06:00 10/31/23 06:00 10/31/23 06:00 10/31/23 06:00
Cardiovascular:: Regular rate and rhythm
Respiratory:: Bilateral: Coarse
Lung Excursion:: Normal
Abdomen:: Nontender and Soft
Bowel Sounds:: Normal
Extremity Edema:: None: Bilateral:
[2023-10-31] MEDS: HEPARIN 5000 UNITS SC ×2 (09:17→19:46)
[2023-10-31] MEDS: LOW STRENGTH ASPIRIN 81 MG PO (09:18)
[2023-10-31] MEDS: LOPRESSOR 12.5 MG PO ×2 (09:18→19:46)
[2023-10-31] MEDS: NAMENDA 10 MG PO ×2 (09:18→19:46)
[2023-10-31] MEDS: PROZAC 20 MG PO (09:18)
[2023-10-31] MEDS: THERAGRAN 1 TABLET PO (09:18)
--- NOTE | 2023-10-31 09:31 | W.PN.CD ---
Today's Communication / Plan
-
Can continue with Imdur and Lopressor. Troponins remain negative and patient currently chest pain-free.
If she continues to remain main pain-free then would plan for Lexiscan on Thursday if patient still hospitalized. Otherwise could consider as outpatient
Will transition from Nitropaste to Imdur 30 mg and continue Lopressor 12.5 mg twice daily. If she stays for Lexiscan we will hold isosorbide prior to test.
Additional treatment of hyponatremia as directed by nephrology
E. coli in urine-additional management as directed by hospitalist.
Will plan to order Lexiscan for Thursday. Call if additional assistance required
Impression / Plan
-
Chest pain -patient reported some chest pain somewhat vague. At 1 point seemed focal not clearly reproducible etiology unclear initially there was concern that it occurred during a period of hypertension but blood pressures have been significantly
lower since that time without the administration of lots of antihypertensive medication. Patient reportedly with history of whitecoat hypertension.
-Currently chest pain-free
-Troponins negative
-No clear evidence that chest discomfort was related to coronary ischemia
-May consider Lexiscan on Thursday.
HTN emergency - BP 227/94 on arrival to ER. However am not sure how much of this was reactive hypertension since her blood pressure seemed to improve without much medical therapy. Patient only on low-dose Nitropaste 0.5 mg and low-dose Lopressor
12.5 mg twice daily blood pressures with minimal elevation. Will transition to oral medications and monitor.
Hyponatremia. Sodium was as low as 125 may be contributing to patient. Feeling poorly with complaints of fatigue and not feeling well. Now up to 129 additional management as directed by nephrology
? UTI. Culture positive for E. coli defer to hospitalist regarding management
Dementia - followed by neurology.
- on Namenda.
Physical Exam
Vital Signs/Labs
Vital Signs
Temp Pulse Resp BP Pulse Ox
98.8 F 63 14 149/47 91
10/31/23 03:28 10/31/23 06:00 10/31/23 06:00 10/31/23 06:00 10/31/23 06:00
10/30/23 10/31/23 11/01/23
06:59 06:59 06:59
Actual Weight 66.1 kg 66.6 kg
10/31/23 03:24
LAB Results
10/29/23 10/29/23 10/30/23
19:08 22:35 03:41
Troponin I < 0.012 < 0.012 < 0.012
10/30/23
12:16
Troponin I < 0.012
Physical Exam
Constitutional: No acute distress
Cardiovascular: Rhythm & rate is regular
Respiratory: Respiratory effort normal
GI: Soft
Neuro/Psych: Alert
Data Reviewed
-
Date of Service: October 31, 2023
Medical Decision Making: Reviewed Test Results
Medical Tests (PFT, Pathology etc): Report Reviewed by me
Labs: Labs Reviewed by me
[2023-10-31] MEDS: SODIUM CHLORIDE 3% 250 IV (09:32)
[2023-10-31 15:34] LABS: Blood Urea Nitrogen 21 mg/dl (7-17); Carbon Dioxide 26 mmol/L (22-30); Chloride 96 mmol/L (98-107); Estimated Creatinine Clearance 58 ml/min; Glucose 150 mg/dl (70-99); Sodium 132 mmol/L (135-145); eGFR > 60.00
--- NOTE | 2023-10-31 16:49 | PTCARENOTE ---
Pt received in bed @ 0700. AAOx3, but drowsy. Sleeping intermittently. Bed placed in chair position and lights turned on. Denying pain. Neurocheck as documented. Morning Sodium 128. New order for 3% Sodium Chloride 250ml @ 30ml/hr. Afternoon Sodium
resulted 132. Dr. Wallace informed. Instructed to completed infusion and complete labs following AM. SaO2 88-92% on room air while sleeping; pt dosing throughout day. 2L NC applied; SaO2 95%. Crackles auscultated at left base. SR with 1st AV block on
mortar mixer. Trace LE edema. PRN Hydralazine not required throughout day; SBP < 160. Poor appetite. Hyperactice bowel sounds. S/p laxatives; pt incontinent loose bowel movements throughout the day. Denying nausea. Incontinent of urine.
--- NOTE | 2023-10-31 17:28 | W.PN.HOSP.TC ---
Today's Communication/Plan
-
Rocephin for UTI
Abdominal X-ray to evaluate stool burden
Continue beta doc and imdur
Assessment / Plan
Assessment / Plan
Physical Exam
General: Well Developed, Well Nourished and No Apparent Distress
HEENT: Normocephalic, Moist mucous membranes and Atraumatic
Respiratory: Clear
Cardiac: S1/S2 and Regular Rhythm; No Murmur or Rub
GI: Soft, Non Tender, Non Distended and Normal Bowel Sounds
Musculoskeletal: No Cyanosis and No Edema
Skin: Warm. Dry.
Neuro: Nonfocal/grossly intact

Assessment/Plan
#Hypertensive urgency/emergency associate with chest discomfort and feeling of dread
#History of white coat hypertension not on treatment
-Chest discomfort now resolved
-No signs or symptoms of CVA
-EKG showing nonspecific T wave inversions
-CT head shows no acute abnormality
-Blood pressure as high as 267/113 around the time of admission
-Troponins negative so far. EKG did not suggest ACS.
-Continue aspirin
-Nitorglycerin drip given
-Cardiology consulted
-NTG paste 0.5 inch (now Nitropaste transitioned to Imdur 30 mg) and continue Lopressor 12.5 mg twice daily. Appreciate cardiology.
-Stress test for Friday, November 03, 2023, will need to clarify with cardiology whether patient should stay inpatient for this
#Weakness
#Concern for E. coli (pansensitive) UTI with Urinary Frequency patient experienced (as per patient's daughter)
-Possibly secondary to severe hypertension
-Rocephin, followed by switch to oral antibiotics, urine cultures showed pansensitive E. coli
#Concern for Constipation
-Dulcolax suppository with no bowel movement
-Check abdominal x-ray
-Will plan to administer laxatives, e.g. Miralax
#Acute on Chronic Hyponatremia
-Given sodium 129 and fatigue/weakness, consulted nephrology, appreciate recommendations
-PO FR 40 ounces daily
-3% saline as per nephrology
Hypercholesterolemia
-Continue statin
Spinal stenosis status post spine surgeries
Scoliosis
Dementia
-Continue memantine
Anxiety/depression
-Continue fluoxetine
Hepatic steatosis
Full code
DVT prophylaxis�heparin
Regular diet
Anticipated Discharge: > 48 hours
Subjective/Interval History
-
Date of Service: October 31, 2023
Patient was seen and examined. She denied any chest pain or any other, new significant symptoms or complaints, her daughter mentioned she appeared to be more tired.
Objective Data
-
Labs:
Laboratory Results
10/31/23
14:59
Sodium 132 L
Potassium 4.0
Chloride 96 L
Carbon Dioxide 26
BUN 21 H
Creatinine 0.6
Glucose 150 H
Calcium 9.0
Vital Signs:
Vital Signs
Temp Pulse Resp BP Pulse Ox
98.6 F 59 16 155/57 98
10/31/23 11:55 10/31/23 14:00 10/31/23 14:00 10/31/23 14:00 10/31/23 14:00
I&O
10/30/23 10/31/23 11/01/23
06:59 06:59 06:59
Intake Total 3270 / 3270 240 / 240
Output Total 800 / 800
Balance -800 / -800 3240 / 3240 240 / 240
[2023-10-31] MEDS: STERILE WATER FOR INJECTION 10 ML IV (18:04)
[2023-10-31] MEDS: ROCEPHIN 1000 MG IV (18:04)
--- NOTE | 2023-10-31 20:00 | PTCARENOTE ---
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 Sat 98% on 2LNC. teeth brushed, deanna care done. BP elevated after care- prn hydralazine given per APR. POC discussed, call omrena w/pt.
[2023-10-31] MEDS: APRESOLINE 10 MG IV (20:23)
--- NOTE | 2023-10-31 22:13 | PTCARENOTE ---
pt transported to and from ED xray for 1 view abd xray- returned to room, VSS.
[2023-11-01] VITALS (12 sets, daily range): BP systolic 103–167; BP diastolic 42–88; BMI 29.6
[2023-11-01 06:37] LABS: Blood Urea Nitrogen 19 mg/dl (7-17); Calcium 9.1 mg/dl (8.4-10.2); Carbon Dioxide 25 mmol/L (22-30); Chloride 99 mmol/L (98-107); Estimated Creatinine Clearance 58 ml/min; Glucose 113 mg/dl (70-99); Sodium 133 mmol/L (135-145); eGFR > 60.00
--- NOTE | 2023-11-01 07:05 | W.PN.CD ---
Today's Communication / Plan
-
Patient very vague but says she does not feel quite right this morning. No complaints of chest pain. Etiology unclear.
Patient was fairly recently started on antibiotics for UTI. On cephalosporin sensitivities consistent with cephalosporin use. Defer to hospitalist regarding treatment of UTI
Crackles at left base will repeat chest x-ray
Patient's blood pressure is mildly elevated she did receive 1 dose of hydralazine yesterday. Lopressor increased to 25 mg twice daily and monitor.
Patient remains chest pain-free
Plan for Lexiscan on Thursday
Impression / Plan
-
Chest pain -patient reported some chest pain somewhat vague. At 1 point seemed focal not clearly reproducible etiology unclear no recurrence. Troponins negative.
- Lexiscan on Thursday.
HTN emergency - BP 227/94 on arrival to ER. However am not sure how much of this was reactive hypertension since her blood pressure seemed to improve without much medical therapy. Patient also reported to have a history of whitecoat hypertension.
Initially patient was on low-dose nitrates and low-dose Lopressor without much elevation of blood pressure. Now just on low-dose beta-doc
-Blood pressure is mildly elevated this morning will change Lopressor to 25 mg twice daily
Hyponatremia. Sodium was as low as 125 may be contributing to patient. Feeling poorly with complaints of fatigue and not feeling well.
-Improving. Management as directed by nephrology.
UTI. Culture positive for E. coli. This was discussed with hospitalist earlier this hospitalization. Defer to hospitalist regarding management
-Patient currently on antibiotics.
Dementia - followed by neurology.
- on Namenda.
Physical Exam
Vital Signs/Labs
Vital Signs
Temp Pulse Resp BP Pulse Ox
98.3 F 83 15 167/57 97
11/01/23 03:15 11/01/23 06:00 11/01/23 06:00 11/01/23 06:00 11/01/23 06:00
10/31/23 11/01/23 11/02/23
06:59 06:59 06:59
Actual Weight 66.6 kg 66.5 kg
10/31/23 03:24
11/01/23 06:06
LAB Results
10/29/23 10/29/23 10/30/23
19:08 22:35 03:41
Troponin I < 0.012 < 0.012 < 0.012
10/30/23
12:16
Troponin I < 0.012
Physical Exam
Constitutional: No acute distress
Cardiovascular: Pedal edema is absent
Respiratory: Other (Crackles at left base)
GI: Soft and Non tender
Neuro/Psych: Alert
Other: Skin
Data Reviewed
-
Date of Service: November 01, 2023
Medical Decision Making: Reviewed Test Results
X-Ray/CT/US/MRI/NUC/PET: Report Reviewed by me
Labs: Labs Reviewed by me and Other (Reviewed issues with nurse)
[2023-11-01] MEDS: HEPARIN 5000 UNITS SC ×2 (07:33→20:29)
[2023-11-01] MEDS: LOW STRENGTH ASPIRIN 81 MG PO (07:34)
[2023-11-01] MEDS: PROZAC 20 MG PO (07:34)
[2023-11-01] MEDS: LOPRESSOR 25 MG PO ×2 (07:34→20:28)
[2023-11-01] MEDS: THERAGRAN 1 TABLET PO (07:34)
[2023-11-01] MEDS: NAMENDA 10 MG PO ×2 (07:34→20:28)
--- NOTE | 2023-11-01 08:03 | W.PN.NEPH.PH ---
Today's Communication / Plan
-
Observe on fluid restrict
Follow electrolytes
Assessment/Plan
-
Assessment
Acute on chronic hyponatremia
Hypertension with hypertensive urgency
Chest pain
Constipation
Nausea vomiting
Plan
Hyponatremia likely a function of chronic SSRI administration
Sodium up to 133 after second administration of 3% saline
Serial BMP
Fluid restriction continues
Remains on Lopressor and as needed IV hydralazine for hypertension
-
-
Date of Service: November 01, 2023
CC / HPI / ROS
-
Chief Complaint:
Hyponatremia
History of Present Illness:
Sodium up to 133 with hypertonic saline
Creatinine stable at baseline
Blood pressure elevated
Review of Systems:
No chest pain or shortness of breath
Labs
-
Labs:
Sodium 133 mmol/L (135-145) L 11/01/23 06:06
Potassium 4.0 mmol/L (3.5-5.1) 11/01/23 06:06
Chloride 99 mmol/L (98-107) 11/01/23 06:06
Carbon Dioxide 25 mmol/L (22-30) 11/01/23 06:06
BUN 19 mg/dl (7-17) H 11/01/23 06:06
Creatinine 0.5 mg/dL (0.6-1.0) L 11/01/23 06:06
eGFR > 60.00 11/01/23 06:06
Glucose 113 mg/dl (70-99) H 11/01/23 06:06
Calcium 9.1 mg/dl (8.4-10.2) 11/01/23 06:06
Albumin 4.4 g/dl (3.5-5.0) 10/30/23 03:41
Physical Exam
-
Vital Signs:
Vital Signs
Temp Pulse Resp BP Pulse Ox
98.3 F 83 15 167/57 96
11/01/23 03:15 11/01/23 06:00 11/01/23 06:00 11/01/23 06:00 11/01/23 07:38
Cardiovascular:: Regular rate and rhythm
Respiratory:: Bilateral: Coarse
Lung Excursion:: Normal
Abdomen:: Nontender and Soft
Bowel Sounds:: Normal
Extremity Edema:: None: Bilateral:
--- NOTE | 2023-11-01 08:08 | W.PN.NEPH.PH ---
Today's Communication / Plan
-
Add Lasix 20 mg every other day for hyponatremia
Assessment/Plan
-
Assessment
Acute on chronic hyponatremia
Hypertension with hypertensive urgency
Chest pain
Constipation
Nausea vomiting
Plan
Hyponatremia likely a function of chronic SSRI administration, Prozac should be cut back
Sodium up to 133 after second administration of 3% saline, now at 130
will add low-dose Lasix 20 mg p.o. every 48 hours for hyponatremia
Serial BMP
Fluid restriction continues
Remains on Lopressor and as needed IV hydralazine for hypertension
-
-
Date of Service: November 01, 2023
CC / HPI / ROS
-
Chief Complaint:
Hyponatremia
History of Present Illness:
Sodium down to 130 from 133
Creatinine stable at baseline
Blood pressure elevated
Review of Systems:
No chest pain or shortness of breath
Nonoliguric
Labs
-
Labs:
Sodium 133 mmol/L (135-145) L 11/01/23 06:06
Potassium 4.0 mmol/L (3.5-5.1) 11/01/23 06:06
Chloride 99 mmol/L (98-107) 11/01/23 06:06
Carbon Dioxide 25 mmol/L (22-30) 11/01/23 06:06
BUN 19 mg/dl (7-17) H 11/01/23 06:06
Creatinine 0.5 mg/dL (0.6-1.0) L 11/01/23 06:06
eGFR > 60.00 11/01/23 06:06
Glucose 113 mg/dl (70-99) H 11/01/23 06:06
Calcium 9.1 mg/dl (8.4-10.2) 11/01/23 06:06
Albumin 4.4 g/dl (3.5-5.0) 10/30/23 03:41
Physical Exam
-
Vital Signs:
Vital Signs
Temp Pulse Resp BP Pulse Ox
98.3 F 83 15 167/57 96
11/01/23 03:15 11/01/23 06:00 11/01/23 06:00 11/01/23 06:00 11/01/23 07:38
Cardiovascular:: Regular rate and rhythm
Respiratory:: Bilateral: Coarse
Lung Excursion:: Normal
Abdomen:: Nontender and Soft
Bowel Sounds:: Normal
Extremity Edema:: None: Bilateral:
[2023-11-01 09:59] LABS: % Basophils 0.6 % (0-2); % Eosinophils 0.6 % (0-6); % Immature Granulocytes 0.4 % (0-0.5); % Lymphocytes 11.1 % (20.5-51.1); % Monocytes 12.9 % (1.7-9.3); % Neutrophils 74.4 % (42.2-75.2); Absolute Basophils 0.1 10^3/uL (0-0.2); Absolute Eosinophils 0.1 10^3/uL (0-0.7); Absolute Lymphocytes 0.9 10^3/uL (1.2-3.4); Hemoglobin 13.5 g/dL (12.0-16.0); Mean Corp Hgb Conc. 34.6 g/dL (33.0-37.0); Mean Corpuscular Hgb 32.5 pg (27.0-31.0); Nucleated Red Blood Cells % 0 %; Platelet Count 170 10^3/uL (130-400); Red Blood Cell Count 4.15 10^6/uL (4.20-5.40); Red Cell Dist. Width 12.7 % (11.5-14.5); White Blood Cell Count 8.1 10^3/uL (4.8-10.8)
--- NOTE | 2023-11-01 14:22 | W.PN.HOSP.TC ---
Today's Communication/Plan
-
Transfer to tele
Continue antibiotics for UTI
Continue increase dose of beta doc
Stress Test on Thursday
Assessment / Plan
Assessment / Plan
Physical Exam
General: Well Developed, Well Nourished and No Apparent Distress
HEENT: Normocephalic, Moist mucous membranes and Atraumatic
Respiratory: LLL crackles
Cardiac: S1/S2 and Regular Rhythm; No Murmur or Rub
GI: Soft, Non Tender, Non Distended and Normal Bowel Sounds
Musculoskeletal: No Cyanosis and No Edema
Skin: Warm. Dry.
Neuro: Nonfocal/grossly intact

Assessment/Plan
#Hypertensive urgency/emergency associate with chest discomfort and feeling of dread
#History of white coat hypertension not on treatment
-Chest discomfort now resolved
-No signs or symptoms of CVA
-EKG showing nonspecific T wave inversions
-CT head shows no acute abnormality
-Blood pressure as high as 267/113 around the time of admission
-Troponins negative so far. EKG did not suggest ACS.
-Continue aspirin
-Nitorglycerin drip given
-Cardiology consulted
-NTG paste 0.5 inch (now Nitropaste transitioned to Imdur 30 mg) and continue Lopressor 25 mg twice daily (increased from 12.5 mg twice daily due to high BP). Appreciate cardiology.
-Stress test for Friday, November 03, 2023
#Weakness
#Concern for E. coli (pansensitive) UTI with Urinary Frequency patient experienced (as per patient's daughter)
-Possibly secondary to severe hypertension
-Rocephin given, now stopped
-Cefdinir 300 mg PO BID started; continue
#Concern for Constipation
-Dulcolax suppository with no bowel movement
-Abdominal x-ray with moderate volume of fecal material in the proximal colon, as per radiologist's report
-Start Miralax
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
#Severe calcific atherosclerotic plaque in the thoracic and abdominal aorta on CXR this hospitalization
#Acute on Chronic Hyponatremia
-Given sodium 129 and fatigue/weakness, consulted nephrology, appreciate recommendations
-PO FR 40 ounces daily
-3% saline as per nephrology
Hypercholesterolemia
-Continue statin
Spinal stenosis status post spine surgeries
Scoliosis
Dementia
-Continue memantine
Anxiety/depression
-Continue fluoxetine
Hepatic steatosis
Full code
DVT prophylaxis�heparin
Regular diet
Anticipated Discharge: > 48 hours
Subjective/Interval History
-
Date of Service: November 01, 2023
Patient was seen and examined. She reported no new significant symptoms or complaints.
Objective Data
-
Labs:
Laboratory Results
11/01/23 11/01/23 11/01/23
05:11 06:06 09:35
WBC 8.1
Hgb 13.5
Hct 39.0
Plt Count 170
Sodium Cancelled 133 L
Potassium Cancelled 4.0
Chloride Cancelled 99
Carbon Dioxide Cancelled 25
BUN Cancelled 19 H
Creatinine Cancelled 0.5 L
Glucose Cancelled 113 H
Calcium Cancelled 9.1
Vital Signs:
Vital Signs
Temp Pulse Resp BP Pulse Ox
98.2 F 83 15 167/57 97
11/01/23 07:55 11/01/23 06:00 11/01/23 06:00 11/01/23 06:00 11/01/23 10:06
I&O
10/31/23 11/01/23 11/02/23
06:59 06:59 06:59
Intake Total 3270 / 3270 480 / 480
Output Total 30 / 30 200 / 200
Balance 3240 / 3240 280 / 280
--- NOTE | 2023-11-01 15:45 | PTCARENOTE ---
Pt received in bed @ 0700. AAOx3. Drowsy, lethargic. Lights turned on in room and bed placed in chair position. Pt slow to awake, but then pleasant and conversive. Out of bed to chair with assist x1 and rolling walker. Sinus ceferino/Sinus rhythm on
case monitor. Scheduled Lopressor 25mg administered. No PRN Hydralazine required throughout shift. Nasal canula removed and room air trialed out of bed in chair. SaO2 95%. Crackles at bases. Deep breathing encouraged. Incontinent of bowel and
bladder. and daughter visiting. Downgraded to telemetry.
[2023-11-01] MEDS: MIRALAX 17 GRAMS PO (16:30)
[2023-11-01] MEDS: OMNICEF 300 MG PO (20:28)
[2023-11-02] VITALS (8 sets, daily range): BP systolic 99–175; BP diastolic 53–76; PULSE 71; O2SAT 94
[2023-11-02 07:19] LABS: Blood Urea Nitrogen 20 mg/dl (7-17); Calcium 8.9 mg/dl (8.4-10.2); Carbon Dioxide 24 mmol/L (22-30); Chloride 98 mmol/L (98-107); Estimated Creatinine Clearance 58 ml/min; Glucose 100 mg/dl (70-99); Potassium 3.9 mmol/L (3.5-5.1); Sodium 130 mmol/L (135-145); eGFR > 60.00
[2023-11-02] MEDS: HEPARIN 5000 UNITS SC (08:12)
[2023-11-02] MEDS: LOPRESSOR PO (08:13)
[2023-11-02] MEDS: LOW STRENGTH ASPIRIN 81 MG PO (08:13)
[2023-11-02] MEDS: PROZAC 20 MG PO (08:13)
[2023-11-02] MEDS: NAMENDA 10 MG PO ×2 (08:14→20:52)
[2023-11-02] MEDS: OMNICEF 300 MG PO ×2 (08:14→20:52)
[2023-11-02] MEDS: THERAGRAN 1 TABLET PO (08:14)
[2023-11-02] MEDS: MIRALAX 17 GRAMS PO (08:14)
--- NOTE | 2023-11-02 10:21 | W.PN.HOSP.TC ---
Today's Communication/Plan
-
see A/P
Assessment / Plan
Assessment / Plan
A/P:
# Hypertensive urgency/emergency associate with chest discomfort and feeling of dread
# History of white coat hypertension not on treatment
Chest discomfort now resolved
EKG showing nonspecific T wave inversions. Troponins negative.
CT head shows no acute abnormality
Blood pressure as high as 267/113 around the time of admission
s/p Nitorglycerin drip given, now started Lopressor 25 mg BID (added holding parameter)
Continue aspirin
For Lexiscan on Friday November 03, 2023
Echo this admission 10/29: EF 55-60%, Thickened mitral valve leaflets with mild MR. Estimated PASP mildly elevated at 36 mmHg. Compared to the study of 12/24/20, MR now appears mild
Card on board
# Weakness
# E. coli (pansensitive) UTI with Urinary Frequency
s/p Rocephin then Cefdinir 300 mg PO BID
# Concern for Constipation
Dulcolax suppository with no bowel movement
Abdominal x-ray with moderate volume of fecal material in the proximal colon, as per radiologist's report
Started Miralax
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
CXR noted MODERATE CHRONIC INFLAMMATORY INTERSTITIAL PNEUMONITIS in the lungs.
Cont cefdinir for total 5 days
# Severe calcific atherosclerotic plaque in the thoracic and abdominal aorta on CXR this hospitalization
# Acute on Chronic Hyponatremia
PO FR 40 ounces daily
s/p 3% saline as per nephrology
Sodium level 130 today
# Hypercholesterolemia
Continue statin
# Spinal stenosis status post spine surgeries
# Scoliosis
# Mild Dementia
Continue memantine
Pt is AOX3
# Anxiety/depression
Continue fluoxetine
# Hepatic steatosis
Full code
DVT prophylaxis� change to Lovenox SQ
Regular diet
Anticipated Discharge: 24 - 48 hours
Subjective/Interval History
-
Date of Service: November 02, 2023
Objective Data
-
Labs:
Laboratory Results
11/02/23
05:57
Sodium 130 L
Potassium 3.9
Chloride 98
Carbon Dioxide 24
BUN 20 H
Creatinine 0.5 L
Glucose 100 H
Calcium 8.9
Vital Signs:
Vital Signs
Temp Pulse Resp BP Pulse Ox
36.8 C 74 18 99/76 94
11/02/23 07:00 11/02/23 08:13 11/02/23 07:00 11/02/23 08:13 11/02/23 07:00
I&O
11/01/23 11/02/23 11/03/23
06:59 06:59 06:59
Intake Total 480 / 480 240 / 240
Output Total 200 / 200
Balance 280 / 280 240 / 240
Review of Systems
-
All other systems: Reviewed and negative
Physical Exam
-
General: Well Developed, Well Nourished, No Apparent Distress, Comfortable and Conversant
HEENT: Normocephalic, Atraumatic, Nose Appears Normal and Ears Appear Normal
Respiratory: Clear to Auscultation and Non Labored Respirations; Negative Accessory Resp Muscle Use
Cardiac: Regular Rhythm and S1/S2
GI: Soft, Nontender, Nondistended and Normal Bowel Sounds
Skin: Warm and Dry
Neuro: Awake and Alert
Psych: Calm and Intact Judgement/Insight (somewhat)
Data Reviewed
-
Medical Tests (Nuc Med, Echo etc): Report Reviewed by me (echo)
Labs: Labs Reviewed by me
[2023-11-02] MEDS: APRESOLINE 10 MG IV (11:47)
[2023-11-02] MEDS: LOPRESSOR 25 MG PO ×2 (11:47→20:51)
[2023-11-02] MEDS: LASIX 20 MG PO (14:31)
--- NOTE | 2023-11-02 16:09 | W.PN.CD ---
Today's Communication / Plan
-
Lexiscan nuclear stress tomorrow
Impression / Plan
-
Chest pain -patient reported some chest pain somewhat vague. Not clearly reproducible. Troponins negative.
-echo this admit: EF 55-60%, nl RV, no sig valve disease
- Lexiscan nuclear stress tomorrow
HTN emergency - resolved.
-BP 227/94 on arrival to ER. However am not sure how much of this was reactive hypertension since her blood pressure seemed to improve without much medical therapy. Patient also reported to have a history of white coat hypertension. Initially
patient was on low-dose nitrates and low-dose Lopressor without much elevation of blood pressure. Now just on low-dose beta-doc
-cont metoprolol tartrate 25mg bid
Hyponatremia.
-Improving. Management as directed by nephrology.
UTI. Culture positive for E. coli. This was discussed with hospitalist earlier this hospitalization. Defer to hospitalist regarding management
-Patient currently on antibiotics.
Dementia - followed by neurology.
- on Namenda.
Physical Exam
Vital Signs/Labs
Vital Signs
Temp Pulse Resp BP Pulse Ox
98.0 F 70 18 124/48 94
11/02/23 11:00 11/02/23 14:31 11/02/23 11:00 11/02/23 14:31 11/02/23 11:00
11/01/23 11/02/23 11/03/23
06:59 06:59 06:59
Actual Weight 66.5 kg
11/01/23 09:35
11/02/23 05:57
Physical Exam
Constitutional: No acute distress and Comfortable
EENT: Moist mucous membranes
Cardiovascular: Rhythm & rate is regular, Pedal edema is absent, JVD pressure is normal and Systolic murmur absent
Respiratory: Respiratory effort normal and Lungs clear to auscul.
GI: Soft and Distention absent
Neuro/Psych: AO x 3
Data Reviewed
-
Date of Service: November 02, 2023
EKG: Other (Tele: SR 60s)
Labs: Labs Reviewed by me
[2023-11-02 16:48] LABS: Glucose - Point of Care 105 mg/dl (70-99)
[2023-11-02] MEDS: LOVENOX 40 MG SC (17:15)
[2023-11-03] VITALS (7 sets, daily range): BP systolic 127–179; BP diastolic 49–75
[2023-11-03] MEDS: APRESOLINE 10 MG IV ×2 (01:00→07:38)
[2023-11-03] MEDS: LOPRESSOR 25 MG PO (07:37)
[2023-11-03] MEDS: LOW STRENGTH ASPIRIN 81 MG PO (07:37)
[2023-11-03 09:03] LABS: Hematocrit 39.7 % (37.0-47.0); Mean Corp Hgb Conc. 35.3 g/dL (33.0-37.0); Mean Corpuscular Volume 93.6 fL (81.0-99.0); Mean Platelet Volume 9.3 fL (7.4-10.4); Platelet Count 175 10^3/uL (130-400); Red Blood Cell Count 4.24 10^6/uL (4.20-5.40); Red Cell Dist. Width 12.7 % (11.5-14.5); White Blood Cell Count 5.5 10^3/uL (4.8-10.8)
[2023-11-03 09:38] LABS: Blood Urea Nitrogen 17 mg/dl (7-17); Calcium 9.1 mg/dl (8.4-10.2); Carbon Dioxide 25 mmol/L (22-30); Chloride 97 mmol/L (98-107); Estimated Creatinine Clearance 58 ml/min; Glucose 122 mg/dl (70-99); Magnesium 1.9 mg/dl (1.6-2.3); Potassium 3.7 mmol/L (3.5-5.1); Sodium 131 mmol/L (135-145); eGFR > 60.00
--- NOTE | 2023-11-03 10:01 | W.PN.HOSP.TC ---
Addendum entered and electronically signed by Karime Martin MD 11/03/23 11:20:
Discussed with sample room supervisor.
Will change metoprolol 25 mg twice daily to Coreg 12.5 mg twice daily for better blood pressure control.
Spoke with daughter on the phone, who states that there is plan for dispo to [facility].
Will ask case manager specialist to check up on dispo planning.
Total time spent 51 minutes
Original Note:
Today's Communication/Plan
-
see A/P
Assessment / Plan
Assessment / Plan
A/P:
# Hypertensive urgency/emergency associate with chest discomfort and feeling of dread
# History of white coat hypertension not on treatment
Chest discomfort now resolved
EKG showing nonspecific T wave inversions. Troponins negative.
CT head shows no acute abnormality
Blood pressure as high as 267/113 around the time of admission
s/p Nitorglycerin drip, started Lopressor 25 mg BID (added holding parameter), IV hydralazine PRN
Continue aspirin
For Lexiscan on Friday November 03, 2023
Echo this admission 10/29: EF 55-60%, Thickened mitral valve leaflets with mild MR. Estimated PASP mildly elevated at 36 mmHg. Compared to the study of 12/24/20, MR now appears mild
Card on board
# Weakness
# E. coli (pansensitive) UTI with Urinary Frequency
s/p Rocephin then Cefdinir 300 mg PO BID
# Concern for Constipation
Dulcolax suppository with no bowel movement
Abdominal x-ray with moderate volume of fecal material in the proximal colon, as per radiologist's report
Started Miralax, Dulcolax x1
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
CXR noted MODERATE CHRONIC INFLAMMATORY INTERSTITIAL PNEUMONITIS in the lungs.
Cont cefdinir for total 5 days
# Severe calcific atherosclerotic plaque in the thoracic and abdominal aorta on CXR this hospitalization
# Acute on Chronic Hyponatremia
PO FR 40 ounces daily
s/p 3% saline as per nephrology
Sodium level 131 today
# Hypercholesterolemia
Continue statin
# Spinal stenosis status post spine surgeries
# Scoliosis
# Mild Dementia
Continue memantine
Pt is AOX3
# Anxiety/depression
Continue fluoxetine
# Hepatic steatosis
Full code
DVT prophylaxis� change to Lovenox SQ
Regular diet
DW RN
Anticipated Discharge: Within 24 hours
Subjective/Interval History
-
Date of Service: November 03, 2023
Objective Data
-
Labs:
Laboratory Results
11/03/23
08:52
WBC 5.5
Hgb 14.0
Hct 39.7
Plt Count 175
Sodium 131 L
Potassium 3.7
Chloride 97 L
Carbon Dioxide 25
BUN 17
Creatinine 0.5 L
Glucose 122 H
Calcium 9.1
Vital Signs:
Vital Signs
Temp Pulse Resp BP Pulse Ox
36.8 C 77 16 178/64 95
11/03/23 07:05 11/03/23 07:37 11/03/23 07:05 11/03/23 07:37 11/03/23 07:05
I&O
11/02/23 11/03/23 11/04/23
06:59 06:59 06:59
Intake Total 240 / 240 240 / 240
Balance 240 / 240 240 / 240
Review of Systems
-
All other systems: Reviewed and negative
Physical Exam
-
General: Well Developed, Well Nourished, No Apparent Distress, Comfortable and Conversant
HEENT: Normocephalic, Atraumatic, Nose Appears Normal and Ears Appear Normal
Respiratory: Clear to Auscultation and Non Labored Respirations; Negative Accessory Resp Muscle Use
Cardiac: Regular Rhythm and S1/S2
GI: Soft, Nontender, Nondistended and Normal Bowel Sounds
Skin: Warm and Dry
Neuro: Awake and Alert
Psych: Calm and Intact Judgement/Insight (somewhat)
Data Reviewed
-
Medical Tests (Nuc Med, Echo etc): Report Reviewed by me (echo)
Labs: Labs Reviewed by me
[2023-11-03] MEDS: OMNICEF 300 MG PO ×2 (10:22→19:52)
[2023-11-03] MEDS: THERAGRAN 1 TABLET PO (10:22)
[2023-11-03] MEDS: PROZAC 20 MG PO (10:22)
[2023-11-03] MEDS: NAMENDA 10 MG PO ×2 (10:22→19:51)
[2023-11-03] MEDS: MIRALAX 17 GRAMS PO (10:23)
[2023-11-03] MEDS: DULCOLAX 10 MG RECTAL (10:23)
--- NOTE | 2023-11-03 10:56 | W.PN.CD ---
Addendum entered and electronically signed by Alon Kate MD 11/03/23 11:22:
I am OK with Coreg over metoprolol.
Original Note:
Today's Communication / Plan
-
OK for home
Cardiology will sign off. Please call with questions.
Impression / Plan
-
Chest pain
- None further
- Pt declined stress test
- Home on ASA/BB/PRN NTG
- Not clear this CP was from CAD
HTN emergency
- BP better
Hyponatremia, improving
Dementia - followed by neurology, on Namenda.
Physical Exam
Vital Signs/Labs
Vital Signs
Temp Pulse Resp BP Pulse Ox
98.3 F 65 16 129/49 95
11/03/23 07:05 11/03/23 10:33 11/03/23 07:05 11/03/23 10:33 11/03/23 07:05
11/03/23 08:52
11/03/23 08:52
Magnesium 1.9 mg/dl (1.6-2.3) 11/03/23 08:52
Physical Exam
Constitutional: No acute distress
EENT: Anicteric
Cardiovascular: Rhythm & rate is regular and Pedal edema is absent
Respiratory: Respiratory effort normal and Lungs clear to auscul.
GI: Soft and Distention absent
Data Reviewed
-
Date of Service: November 03, 2023
--- NOTE | 2023-11-03 13:06 | CM ---
CM reviewed chart, placed call to patients daughter, Tatum, to discuss referrals to short term rehab. Tatum requesting referrals to [facility] and [facility] as they are close to patients home. Tatum reports patient lives with her in a
split level home. CM will send referrals in [facility]. CM will continue to follow arzate all discharge planning needs.
Plan; SNF pending accepting facility.
--- NOTE | 2023-11-03 14:11 | W.PN.NEPH.PH ---
Today's Communication / Plan
-
follow sodium with lasix QOD and FR
Assessment/Plan
-
Assessment
Acute on chronic hyponatremia
Hypertension with hypertensive urgency
Chest pain
Constipation
Nausea vomiting
Plan
Hyponatremia likely a function of chronic SSRI administration, Prozac should be cut back
Sodium stable at 131
cont low-dose Lasix 20 mg p.o. every 48 hours for hyponatremia
Fluid restriction continues
BP labile, changed to coreg from metoprolol by cards, apparently refused stress test
treat constipation
-
-
Date of Service: November 03, 2023
CC / HPI / ROS
-
Chief Complaint:
Hyponatremia
History of Present Illness:
Sodium stable at 131
Creatinine stable at baseline
Blood pressure labile
Review of Systems:
No chest pain or shortness of breath
constipation
Labs
-
Labs:
WBC 5.5 10^3/uL (4.8-10.8) 11/03/23 08:52
RBC 4.24 10^6/uL (4.20-5.40) 11/03/23 08:52
Hgb 14.0 g/dL (12.0-16.0) 11/03/23 08:52
Hct 39.7 % (37.0-47.0) 11/03/23 08:52
Plt Count 175 10^3/uL (130-400) 11/03/23 08:52
Sodium 131 mmol/L (135-145) L 11/03/23 08:52
Potassium 3.7 mmol/L (3.5-5.1) 11/03/23 08:52
Chloride 97 mmol/L (98-107) L 11/03/23 08:52
Carbon Dioxide 25 mmol/L (22-30) 11/03/23 08:52
BUN 17 mg/dl (7-17) 11/03/23 08:52
Creatinine 0.5 mg/dL (0.6-1.0) L 11/03/23 08:52
eGFR > 60.00 11/03/23 08:52
Glucose 122 mg/dl (70-99) H 11/03/23 08:52
Calcium 9.1 mg/dl (8.4-10.2) 11/03/23 08:52
Albumin 4.4 g/dl (3.5-5.0) 10/30/23 03:41
Physical Exam
-
Vital Signs:
Vital Signs
Temp Pulse Resp BP Pulse Ox
98.0 F 65 16 161/71 96
11/03/23 11:00 11/03/23 11:00 11/03/23 11:00 11/03/23 11:00 11/03/23 11:00
Cardiovascular:: Regular rate and rhythm
Respiratory:: Bilateral: CTA
Lung Excursion:: Normal
Abdomen:: Nontender and Soft
Extremity Edema:: None: Bilateral:
Parker Catheter: No
[2023-11-03] MEDS: LOVENOX 40 MG SC (17:05)
[2023-11-03] MEDS: COREG 12.5 MG PO (19:51)
[2023-11-04 03:30] VITALS: BP 133/51
[2023-11-04 06:45] LABS: Hematocrit 34.3 % (37.0-47.0); Mean Corpuscular Hgb 32.5 pg (27.0-31.0); Mean Platelet Volume 10.2 fL (7.4-10.4); Platelet Count 173 10^3/uL (130-400); Red Blood Cell Count 3.69 10^6/uL (4.20-5.40); Red Cell Dist. Width 12.4 % (11.5-14.5); White Blood Cell Count 5.3 10^3/uL (4.8-10.8)
[2023-11-04 07:15] VITALS: BP 159/61
[2023-11-04 07:23] LABS: Blood Urea Nitrogen 14 mg/dl (7-17); Calcium 8.6 mg/dl (8.4-10.2); Carbon Dioxide 25 mmol/L (22-30); Chloride 94 mmol/L (98-107); Estimated Creatinine Clearance 58 ml/min; Glucose 99 mg/dl (70-99); Potassium 3.6 mmol/L (3.5-5.1); Sodium 127 mmol/L (135-145); eGFR > 60.00
[2023-11-04] MEDS: NAMENDA 10 MG PO (08:58)
[2023-11-04] MEDS: MIRALAX 17 GRAMS PO (08:58)
[2023-11-04] MEDS: PROZAC 20 MG PO (08:59)
[2023-11-04] MEDS: LOW STRENGTH ASPIRIN 81 MG PO (08:59)
[2023-11-04] MEDS: OMNICEF 300 MG PO (08:59)
[2023-11-04] MEDS: COREG 12.5 MG PO (08:59)
[2023-11-04] MEDS: THERAGRAN 1 TABLET PO (08:59)
--- NOTE | 2023-11-04 09:24 | W.PN.HOSP.TC ---
Addendum entered and electronically signed by Karime Martin MD 11/04/23 14:06:
total DC time 38 min
Original Note:
Today's Communication/Plan
-
for SNF
Assessment / Plan
Assessment / Plan
A/P:
# Hypertensive urgency/emergency associate with chest discomfort and feeling of dread
# History of white coat hypertension not on treatment
Chest discomfort now resolved
EKG showing nonspecific T wave inversions. Troponins negative.
CT head shows no acute abnormality
Blood pressure as high as 267/113 around the time of admission
s/p Nitorglycerin drip, started BB changed to Coreg 12.5 mg BID (for better BP control, with holding parameter), IV hydralazine PRN
Continue aspirin
was planned for Lexiscan ThursdayNovember 02, but pt refused study
Echo this admission 10/29: EF 55-60%, Thickened mitral valve leaflets with mild MR. Estimated PASP mildly elevated at 36 mmHg. Compared to the study of 12/24/20, MR now appears mild
Card on board
# Weakness
# E. coli (pansensitive) UTI with Urinary Frequency
s/p Rocephin then Cefdinir 300 mg PO BID
# Concern for Constipation
Dulcolax suppository with no bowel movement
Abdominal x-ray with moderate volume of fecal material in the proximal colon, as per radiologist's report
Started Miralax, s/p Dulcolax x1
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
CXR noted MODERATE CHRONIC INFLAMMATORY INTERSTITIAL PNEUMONITIS in the lungs.
Cont cefdinir for total 5 days
# Severe calcific atherosclerotic plaque in the thoracic and abdominal aorta on CXR this hospitalization
# Acute on Chronic Hyponatremia
PO FR 40 ounces daily
s/p 3% saline as per nephrology
Sodium level 131 today
# Hypercholesterolemia
Continue statin
# Spinal stenosis status post spine surgeries
# Scoliosis
# Mild Dementia
Continue memantine
Pt is AOX3
# Anxiety/depression
Continue fluoxetine
# Hepatic steatosis
Full code
DVT prophylaxis� change to Lovenox SQ
Regular diet
Dispo: SNF
DW at bedside
DW RN
Anticipated Discharge: Within 24 hours
Subjective/Interval History
-
Date of Service: November 04, 2023
Objective Data
-
Labs:
Laboratory Results
11/04/23
05:03
WBC 5.3
Hgb 12.0
Hct 34.3 L
Plt Count 173
Sodium 127 L
Potassium 3.6
Chloride 94 L
Carbon Dioxide 25
BUN 14
Creatinine 0.5 L
Glucose 99
Calcium 8.6
Vital Signs:
Vital Signs
Temp Pulse Resp BP Pulse Ox
36.9 C 65 14 159/51 92
11/04/23 07:15 11/04/23 08:59 11/04/23 07:15 11/04/23 08:59 11/04/23 07:15
I&O
11/03/23 11/04/23 11/05/23
06:59 06:59 06:59
Intake Total 240 / 240 1680 / 1680
Balance 240 / 240 1680 / 1680
Review of Systems
-
All other systems: Reviewed and negative
Physical Exam
-
General: Well Developed, Well Nourished, No Apparent Distress, Comfortable and Conversant
HEENT: Normocephalic, Atraumatic, Nose Appears Normal and Ears Appear Normal
Respiratory: Clear to Auscultation and Non Labored Respirations; Negative Accessory Resp Muscle Use
Cardiac: Regular Rhythm and S1/S2
GI: Soft, Nontender, Nondistended and Normal Bowel Sounds
Skin: Warm and Dry
Neuro: Awake and Alert
Psych: Calm and Intact Judgement/Insight (somewhat)
Data Reviewed
-
Medical Tests (Nuc Med, Echo etc): Report Reviewed by me (echo)
Labs: Labs Reviewed by me
--- NOTE | 2023-11-04 10:04 | CM ---
Addendum entered by Selena Falcon 11/04/23 15:10:
Patient transport time changed to 5:00 p.m.
Addendum entered by Selena Falcon 11/04/23 10:42:
Patient scheduled for 3:00 p.m. ambulance transport. Patient see bedside, discussed transport time. TT to [facility] with update. CM placed call to patients daughter with transport time.
Original Note:
CM reviewed chart, patient clear for discharge today. CM spoke with Natacha from [facility], able to accept patient SNF. CM spoke with patients daughterTatum, patient will require ambulance transport. IMM reviewed with daughter, understands/agreeable
with form, placed in patients chart. CM will continue to follow for all discharge planning needs.
Plan; [facility] SNF, will need ambulance transport
[facility]
Report: [phone]
[2023-11-04 11:00] VITALS: BP 136/44
[2023-11-04] MEDS: FLEET MINERAL OIL ENEMA 133 ML RECTAL (11:05)
--- NOTE | 2023-11-04 12:16 | W.PN.NEPH.PH ---
Today's Communication / Plan
-
samsca
Assessment/Plan
-
Assessment
Acute on chronic hyponatremia
Hypertension with hypertensive urgency
Chest pain
Constipation
Nausea vomiting
Plan
samsca
increase lasix to daily
continue FR
remains on low dose prozac
-
-
Date of Service: November 04, 2023
CC / HPI / ROS
-
Chief Complaint:
Hyponatremia
History of Present Illness:
Sodium down to 127
Creatinine stable at baseline
Blood pressure labile
Review of Systems:
No chest pain or shortness of breath
Labs
-
Labs:
WBC 5.3 10^3/uL (4.8-10.8) 11/04/23 05:03
RBC 3.69 10^6/uL (4.20-5.40) L 11/04/23 05:03
Hgb 12.0 g/dL (12.0-16.0) 11/04/23 05:03
Hct 34.3 % (37.0-47.0) L 11/04/23 05:03
Plt Count 173 10^3/uL (130-400) 11/04/23 05:03
Sodium 127 mmol/L (135-145) L 11/04/23 05:03
Potassium 3.6 mmol/L (3.5-5.1) 11/04/23 05:03
Chloride 94 mmol/L (98-107) L 11/04/23 05:03
Carbon Dioxide 25 mmol/L (22-30) 11/04/23 05:03
BUN 14 mg/dl (7-17) 11/04/23 05:03
Creatinine 0.5 mg/dL (0.6-1.0) L 11/04/23 05:03
eGFR > 60.00 11/04/23 05:03
Glucose 99 mg/dl (70-99) 11/04/23 05:03
Calcium 8.6 mg/dl (8.4-10.2) 11/04/23 05:03
Albumin 4.4 g/dl (3.5-5.0) 10/30/23 03:41
Physical Exam
-
Vital Signs:
Vital Signs
Temp Pulse Resp BP Pulse Ox
97.8 F 61 16 136/44 95
11/04/23 11:00 11/04/23 11:00 11/04/23 11:00 11/04/23 11:00 11/04/23 11:00
Cardiovascular:: Regular rate and rhythm
Respiratory:: Bilateral: CTA
Lung Excursion:: Normal
Abdomen:: Nontender and Soft
Bowel Sounds:: Normal
Extremity Edema:: None: Bilateral:
[2023-11-04] MEDS: LASIX 20 MG PO (12:39)
[2023-11-04] MEDS: SAMSCA 15 MG PO (12:40)
--- NOTE | 2023-11-04 13:23 | W.DCSUMMARY ---
Discharge Summary
Discharge Data
Date of Admission: 10/29/23
Date of Discharge: 11/04/23
-
Pending Results: No
Hospital Course
Principal Diagnosis:
Hypertensive urgency with chest discomfort
E. coli (pansensitive) UTI with Urinary Frequency
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
Chronic Diagnoses:�
Hypercholesterolemia
Spinal stenosis status post spine surgeries
Scoliosis
Mild Dementia, on memantine
Anxiety/depression
Hepatic steatosis
Consultations:�
Cardiology
Nephrology
Procedures:�
None
Clinical course:�
This is a 83-year-old female, with past medical history as stated above, who presented with elevated blood pressure with chest discomfort.
Problem 1:
Hypertensive urgency with chest discomfort.
Her EKG showed nonspecific T wave inversion, her troponin was negative.
She initially received nitroglycerin drip, which was subsequently discontinued.
She was started with beta-doc, and was discharged with Coreg 12.5 mg twice daily.
She was initially planned for Lexiscan, but she declined the study.
She can continue with sublingual nitro as needed if her chest pain recurs.
Of note, her echo this admission was largely unrevealing: EF 55-60%, thickened mitral valve leaflets with mild MR. Estimated PASP mildly elevated at 36 mmHg. Compared to the study of 12/24/20, MR now appears mild
Problem 2:
E. coli (pansensitive) UTI with Urinary Frequency.
She received Rocephin initially, which was changed to cefdinir.
Problem 3:
Constipation.
This was treated with bowel regimen.
Problem 4:
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
She was on cefdinir for total 5 days for any pneumonia coverage.
Problem 5:
Acute on chronic hyponatremia, likely SIADH.
Her SIADH was felt likely due to Prozac.
She was started with low-dose Lasix 20 mg every 48 hours per renal for hyponatremia.
Her Prozac would be tapered down and subsequently discontinued- this was informed to her daughter.
As for the rest of her medical problems, they were stable during her hospital stay.
Discharge Plan
-
Patient Disposition: Fpc/SNF
Discharge Diagnosis/Procedures: Hypertensive urgency with chest discomfort (refused Lexiscan);
E. coli (pansensitive) UTI with Urinary Frequency;
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
Generalized weakness
Hyponatremia likely a function of chronic SSRI administration (Prozac cut down and to be discontinued)
Condition: Fair
Diet: As tolerated, Low Sodium and Restrict fluids to 48 oz
Activity: As tolerated
Driving Restrictions: As prior to admission
Blood Work: BMP in 5 day
Activity Restrictions/Additional Instructions:
Follow-up with your PCP in 1 week for BP monitoring
Referrals:
Alisa Ureña MD [Family Provider] - in less than 1 week
Additional Discharge Medication Instructions: Continue Coreg 12.5 mg twice daily for blood pressure control
Take SL nitro as needed for chest pain/discomfort
Continue Cefdinir for 2 more days
Decrease Prozac to 10 mg for 10 days, then stop
Take Lasix every other days while still on Prozac
Prescriptions:
New
carvedilol 6.25 mg Tablet
12.5 mg PO BID Qty: 60 0RF
cefdinir 300 mg Capsule
300 mg PO Q12 2 Days Qty: 4 0RF
furosemide 20 mg Tablet
20 mg PO Q48H Qty: 30 0RF
fluoxetine [Prozac] 10 mg capsule
10 mg PO DAILY Qty: 10 0RF
Rx Instructions:
wean to off
nitroglycerin 0.4 mg tablet, sublingual
0.4 mg sublingual Q5-15M PRN (Reason: chest pain) Qty: 7 0RF
Continued
aspirin 81 mg Tablet,Chewable
81 mg PO DAILY
memantine 10 mg Tablet
10 mg PO BID
Centrum Silver 0.4 mg-300 mcg- 250 mcg Tablet
1 tab PO DAILY
Discontinued
fluoxetine 20 MG capsule
20 mg PO DAILY
Discharge Orders:
Discharge Patient (As Directed); Ordered 11/04/23
Ordered By: Karime Martin
Discharge Date and Time
Print Language: CAMEROONIAN
--- NOTE | 2023-11-04 14:34 | PTCARENOTE ---
No BM since 10/30. Pt reports feeling constipated. Appetite good, eating a low cholesterol diet. Miralax given this AM, Fleets enema given in the afternoon. Pt ambulated to the bathroom, passing gas but no BM. Milk & Molasses enema given now as
ordered by Dr Martin.
[2023-11-04 15:25] VITALS: BP 153/60
--- NOTE | 2023-11-04 16:48 | PTCARENOTE ---
Large brown BM, liquid and small hard formed pieces. Pt states she feels relief.
== END 2023-11-04 17:29 | DRG 305 ==
LOC: 4 WEST ACU 20:01
PROVIDERS: Hospitalist; Specialist; ADMITTING PHYSICIAN Hospitalist; ATTENDING PHYSICIAN Internal Medicine; CONSULT PHYSICIAN Internal Medicine Cardiovascular Disease; CONSULT PHYSICIAN Specialist; EMERGENCY PHYSICIAN Emergency Medicine; FAMILY PHYSICIAN Internal Medicine
DX: I16.1 Hypertensive emergency (principal); N39.0 Urinary tract infection, site not specified; E22.2 Syndrome of inappropriate secretion of antidiuretic hormone; F03.A4 Unspecified dementia, mild, with anxiety; F03.A3 Unspecified dementia, mild, with mood disturbance; B96.20 Unspecified Escherichia coli [E. coli] as the cause of diseases classified elsewhere; J84.89 Other specified interstitial pulmonary diseases; E78.00 Pure hypercholesterolemia, unspecified; F32.A Depression, unspecified; K76.0 Fatty (change of) liver, not elsewhere classified; Z79.82 Long term (current) use of aspirin
CPT/HCPCS: 93308; 70450; 71046; 74018; 80048; 80053; 81003; 81015; 82570; 82962; 83735; 83930; 83935; 84300; 84484; 85025; 85027; 87086; 87088; 87186; 87811; 93005; 93306; 96374; 97116; 97162; 97166; 97530; 97535; 99291

== ENCOUNTER → 2023-11-09 11:14 | Outpatient (REF) | payer OTHER, MEDICARE, SELFPAY ==
[2023-11-09 13:55] LABS: % Basophils 0.6 % (0-2); % Immature Granulocytes 0.5 % (0-0.5); % Lymphocytes 24.6 % (20.5-51.1); % Monocytes 14.1 % (1.7-9.3); % Neutrophils 55.2 % (42.2-75.2); Absolute Eosinophils 0.3 10^3/uL (0-0.7); Absolute Lymphocytes 1.5 10^3/uL (1.2-3.4); Absolute Monocytes 0.9 10^3/uL (0.1-0.6); Absolute Neutrophils 3.5 10^3/uL (1.4-6.5); Hematocrit 38.6 % (37.0-47.0); Hemoglobin 12.9 g/dL (12.0-16.0); Mean Corp Hgb Conc. 33.4 g/dL (33.0-37.0); Mean Corpuscular Hgb 31.5 pg (27.0-31.0); Mean Corpuscular Volume 94.1 fL (81.0-99.0); Mean Platelet Volume 10.9 fL (7.4-10.4); Nucleated Red Blood Cells % 0 %; Platelet Count 208 10^3/uL (130-400); Red Cell Dist. Width 12.8 % (11.5-14.5); White Blood Cell Count 6.3 10^3/uL (4.8-10.8)
[2023-11-09 14:08] LABS: Blood Urea Nitrogen 23 mg/dl (7-17); Calcium 8.9 mg/dl (8.4-10.2); Carbon Dioxide 30 mmol/L (22-30); Chloride 99 mmol/L (98-107); Glucose 104 mg/dl (70-99); Potassium 4.3 mmol/L (3.5-5.1); Sodium 139 mmol/L (135-145); eGFR > 60.00
== END ==
LOC: OLABP 11:14
PROVIDERS: ATTENDING PHYSICIAN Family Medicine
DX: F32.9 Major depressive disorder, single episode, unspecified (principal); N39.0 Urinary tract infection, site not specified; B96.20 Unspecified Escherichia coli [E. coli] as the cause of diseases classified elsewhere; F03.90 Unspecified dementia, unspecified severity, without behavioral disturbance, psychotic disturbance, mood disturbance, and anxiety; M62.81 Muscle weakness (generalized); J84.89 Other specified interstitial pulmonary diseases; K59.00 Constipation, unspecified; E87.1 Hypo-osmolality and hyponatremia; E78.00 Pure hypercholesterolemia, unspecified; M48.00 Spinal stenosis, site unspecified; K76.0 Fatty (change of) liver, not elsewhere classified; F41.9 Anxiety disorder, unspecified
CPT/HCPCS: 36415; 80048; 85025

== ENCOUNTER → 2023-11-25 12:36 | Outpatient (REF) | payer MEDICARE, OTHER, SELFPAY ==
[2023-11-25 16:12] LABS: % Basophils 0.5 % (0-2); % Eosinophils 4.8 % (0-6); % Immature Granulocytes 0.3 % (0-0.5); % Lymphocytes 27.8 % (20.5-51.1); % Monocytes 13.1 % (1.7-9.3); % Neutrophils 53.5 % (42.2-75.2); Absolute Eosinophils 0.3 10^3/uL (0-0.7); Absolute Lymphocytes 1.6 10^3/uL (1.2-3.4); Absolute Monocytes 0.8 10^3/uL (0.1-0.6); Absolute Neutrophils 3.1 10^3/uL (1.4-6.5); Hematocrit 40.5 % (37.0-47.0); Hemoglobin 13.4 g/dL (12.0-16.0); Mean Corp Hgb Conc. 33.1 g/dL (33.0-37.0); Mean Corpuscular Hgb 31.4 pg (27.0-31.0); Mean Corpuscular Volume 94.8 fL (81.0-99.0); Mean Platelet Volume 10.9 fL (7.4-10.4); Nucleated Red Blood Cells % 0 %; Platelet Count 225 10^3/uL (130-400); Red Blood Cell Count 4.27 10^6/uL (4.20-5.40); Red Cell Dist. Width 13.1 % (11.5-14.5); White Blood Cell Count 5.8 10^3/uL (4.8-10.8)
[2023-11-25 16:14] LABS: Urine Albumin Negative (Neg - Trace); Urine Bilirubin Negative (Negative); Urine Character Clear (Clear); Urine Color Yellow; Urine Glucose Negative (Negative); Urine Ketone Negative (Negative); Urine Leukocyte Negative (Negative); Urine Nitrite Negative (Negative); Urine Occult Blood Negative (Negative); Urine Specific Gravity 1.005 (<1.030); Urine Urobilinogen Negative (Neg - 1+)
[2023-11-25 16:40] LABS: Blood Urea Nitrogen 17 mg/dl (7-17); Calcium 9.4 mg/dl (8.4-10.2); Carbon Dioxide 25 mmol/L (22-30); Chloride 94 mmol/L (98-107); Glucose 104 mg/dl (70-99); Potassium 4.2 mmol/L (3.5-5.1); Sodium 133 mmol/L (135-145); eGFR > 60.00
== END ==
LOC: HWLAB 12:36
PROVIDERS: ATTENDING PHYSICIAN Internal Medicine
DX: E87.1 Hypo-osmolality and hyponatremia (principal); Z86.19 Personal history of other infectious and parasitic diseases; Z87.440 Personal history of urinary (tract) infections; N39.0 Urinary tract infection, site not specified
CPT/HCPCS: 36415; 80048; 81003; 85025; 87086

== ENCOUNTER 2024-01-03 01:52 | Emergency (ER) | payer MEDICARE, OTHER, SELFPAY ==
[2024-01-03 01:23] LABS: % Basophils 0.3 % (0-2); % Eosinophils 0.7 % (0-6); % Immature Granulocytes 0.2 % (0-0.5); % Lymphocytes 8.6 % (20.5-51.1); % Monocytes 6.6 % (1.7-9.3); % Neutrophils 83.6 % (42.2-75.2); Absolute Eosinophils 0.1 10^3/uL (0-0.7); Absolute Lymphocytes 0.9 10^3/uL (1.2-3.4); Absolute Monocytes 0.7 10^3/uL (0.1-0.6); Absolute Neutrophils 8.7 10^3/uL (1.4-6.5); Hematocrit 39.5 % (37.0-47.0); Hemoglobin 13.8 g/dL (12.0-16.0); Mean Corp Hgb Conc. 34.9 g/dL (33.0-37.0); Mean Corpuscular Hgb 31.7 pg (27.0-31.0); Mean Corpuscular Volume 90.6 fL (81.0-99.0); Mean Platelet Volume 9.1 fL (7.4-10.4); Nucleated Red Blood Cells % 0 %; Platelet Count 174 10^3/uL (130-400); Red Blood Cell Count 4.36 10^6/uL (4.20-5.40); Red Cell Dist. Width 12.7 % (11.5-14.5); White Blood Cell Count 10.4 10^3/uL (4.8-10.8)
--- NOTE | 2024-01-03 01:28 | ED.GENMED ---
History of Present Illness
<JAMIL Andrea - Last Filed: 01/03/24 03:29>
General
Chief Complaint: Abdominal Symptoms
Source: patient and family
Exam Limitations: dementia
Time Seen by Provider: 01/03/24 01:07 EST
Nursing documentation reviewed up to this point in time: agreed with
History of Present Illness
History of Present Illness:
Patient is an 83yo F who presents via EMS for abdominal sxs and weakness x6hrs. Exact history of events is unclear due to pt's dementia. Pt reports sxs came on all of a sudden around 7:30pm. Reports 1 episode of vomiting recently eaten food. Denies
nausea and diarrhea. Pt repeatedly states she believes her sxs are due to not drinking enough water. She states she was on the toilet urinating when she felt weak and laid down on the floor as to not fall. Her states she was laying on the
floor for at least 2hrs saying she was dying and couldn't get up. Pt reports last BM was this morning but according to her journal last BM was . Nursing removed a large amount of impacted stool before I spoke to pt. Pt says she now feels
much better.
Past History
<JAMIL Andrea - Last Filed: 01/03/24 03:29>
Past History
ED Past Medical History: HTN, Hypercholesterolemia and Other (Patient has a history of back pain, scoliosis, spinal stenosis,PNA, pancreatic cyst)
ED Past Surgical History: and Other (history of a lumbar spinal fusion, cervical fusion)
Patient has exhibited threatening behavior?: No
PSI?: No
Social History
Tobacco: Non-smoker
Alcohol: None
Drug: None
Personal:
Living: with family
Employment: Retired
Review of Systems
<JAMIL Andrea - Last Filed: 01/03/24 03:29>
Review of Systems
Constitutional: Denies fever, fatigue or chills
Respiratory: Denies cough or trouble breathing
Cardiac: Denies chest pain, palpitations or syncope
ABD/GI: Reports vomiting and constipated; Denies abdominal pain, nausea or diarrhea
: Denies dysuria
Neurological: Reports weakness; Denies dizzy or headache
Phy Exam
<Chani Santacruz [facility] - Last Filed: 01/03/24 03:29>
General Physical Exam
General Presentation: no apparent distress
General age: appears stated age
General Skin: warm and dry
General Habitus: elderly
General Mental: alert
General Hydration: dry mucous membranes
Cardiovascular Exam
Cardiovascular Exam: regular rate/rhythm, no edema, no gallop and no murmur
Pulmonary Exam
Pulmonary Exam: lungs clear, no respiratory distress, no crackles and no wheezing
Gastrointestinal Exam
Gastrointestinal Exam: normal bowel sounds, non tender, soft, no organomegaly and non distended
Neurological Exam
Neurological Exam: alert and no motor deficits
Course
<Chani Santacruz [facility] Filed: 01/03/24 03:29>
Orders/Labs/Results
Orders:
Orders
01/03/24 01:12
CBC/With Diff [Complete Blood Count/With Diff] Urgent
01/03/24 02:00
CR Abdomen - 1 View Urgent
Comment:
Reason For Exam: STOOL IMPACTION
01/03/24 02:41
Comprehensive Metabolic Panel Urgent
Abnormal Lab Results
01/03/24 01/03/24
01:12 EST 02:41
MCH 31.7 H pg
(27.0-31.0)
Absolute Neuts (auto) 8.7 H 10^3/uL
(1.4-6.5)
Absolute Lymphs (auto) 0.9 L 10^3/uL
(1.2-3.4)
Absolute Monos (auto) 0.7 H 10^3/uL
(0.1-0.6)
Neutrophils % 83.6 H %
(42.2-75.2)
Lymphocytes % 8.6 L %
(20.5-51.1)
Sodium 133 L mmol/L
(135-145)
Chloride 95 L mmol/L
(98-107)
BUN 24 H mg/dl
(7-17)
Creatinine 0.5 L mg/dL
(0.6-1.0)
Glucose 173 H mg/dl
(70-99)
01/03/24 01:12 EST
01/03/24 02:41
Vital Signs
Initial and Last Documented VS:
Initial Vital Signs
Temp Pulse Resp BP Pulse Ox
95.4 F L 77 20 159/64 96
01/03/24 01:55 EDT 01/03/24 01:55 EDT 01/03/24 01:55 EDT 01/03/24 01:55 EDT 01/03/24 01:55 EDT
Last Documented Vital Signs
Temp Pulse Resp BP Pulse Ox
97.9 F 71 16 134/52 95
01/03/24 01:51 EST 01/03/24 02:45 01/03/24 02:45 01/03/24 02:00 01/03/24 02:45
<Levy Farrar, DO - Last Filed: 01/03/24 02:56>
Orders/Labs/Results
Orders:
Orders
01/03/24 01:12
CBC/With Diff [Complete Blood Count/With Diff] Urgent
01/03/24 02:00
CR Abdomen - 1 View Urgent
Comment:
Reason For Exam: STOOL IMPACTION
01/03/24 02:41
Comprehensive Metabolic Panel Urgent
Abnormal Lab Results
01/03/24 01/03/24
01:12 EST 02:41
MCH 31.7 H pg
(27.0-31.0)
Absolute Neuts (auto) 8.7 H 10^3/uL
(1.4-6.5)
Absolute Lymphs (auto) 0.9 L 10^3/uL
(1.2-3.4)
Absolute Monos (auto) 0.7 H 10^3/uL
(0.1-0.6)
Neutrophils % 83.6 H %
(42.2-75.2)
Lymphocytes % 8.6 L %
(20.5-51.1)
Sodium 133 L mmol/L
(135-145)
Chloride 95 L mmol/L
(98-107)
BUN 24 H mg/dl
(7-17)
Creatinine 0.5 L mg/dL
(0.6-1.0)
Glucose 173 H mg/dl
(70-99)
01/03/24 01:12 EST
01/03/24 02:41
Vital Signs
Initial and Last Documented VS:
Initial Vital Signs
Temp Pulse Resp BP Pulse Ox
95.4 F L 77 20 159/64 96
01/03/24 01:55 EDT 01/03/24 01:55 EDT 01/03/24 01:55 EDT 01/03/24 01:55 EDT 01/03/24 01:55 EDT
Last Documented Vital Signs
Temp Pulse Resp BP Pulse Ox
97.9 F 71 16 134/52 95
01/03/24 01:51 EST 01/03/24 02:45 01/03/24 02:45 01/03/24 02:00 01/03/24 02:45
<JAMIL Andrea - Last Filed: 01/03/24 03:29>
MDM/Problems Addressed
Differential Diagnosis Includes:
stool impaction, constipation, gastroenteritis
<JAMIL Andrea - Last Filed: 01/03/24 03:29>
*Critical Care Note
Total Time (30-74mins, 75-104mins- exclusive of procedures): Not Applicable
ED Attending Note
<JAMIL Andrea - Last Filed: 01/03/24 03:29>
-
Portions of this chart may have been created with voice recognition software.� Occasional wrong word or��sound alike� substitutions may have occurred due to the inherent limitations of voice recognition software.
<Levy Farrar DO - Last Filed: 01/03/24 02:56>
ED Attending Note
Patient seen and examined by attending physician: Yes
I performed the substantive portion of visit, reviewed & personally made and approve the management plan that is documented in note by myself or JUN.: Yes
ED Attending Note:
This a pleasant 83-year-old female presents to the emergency department via EMS for diarrhea vomiting and lower abdominal pain. Patient states that she has been weak and was lying on the bathroom floor. Upon arrival, while getting a rectal temp
nursing noted a spontaneous discharge of fecal impaction. A very large amount of stool was expressed and patient reported that her symptoms have resolved. Patient reported no abdominal pain. She states that her nausea resolved. Patient wished to
be discharged home. She had no complaints at time of exam. Patient was seen in conjunction with the PA student. I have reviewed and agree with the history and treatment plan presented. On my independent physical exam, patient is awake, alert,
and oriented x3. Heart is regular rate and rhythm. Lungs are clear and states bilaterally without wheezes rales or rhonchi. Abdomen is soft, nontender. Normal bowel sounds. Skin is warm and dry. Patient moves all 4 extremities. Mentation is
intact.
Discharge Plan
Departure
Patient Disposition: Home (Routine Discharge)
Date of Disposition: 01/03/24
Time of Disposition: 02:52
Patient with high blood pressure during this ER visit?: Yes
Condition: Good
Discharge Problem:
Abdominal pain, Fecal impaction
Instructions: Constipation, Adult (DC), Fecal Impaction (DC), Abdominal Pain, BLOOD PRESSURE
Prescriptions:
No Action
aspirin 81 mg Tablet,Chewable
81 mg PO DAILY
memantine 10 mg Tablet
10 mg PO BID
Centrum Silver 0.4 mg-300 mcg- 250 mcg Tablet
1 tab PO DAILY
carvedilol 6.25 mg Tablet
12.5 mg PO BID Qty: 60 0RF
cefdinir 300 mg Capsule
300 mg PO Q12 2 Days Qty: 4 0RF
furosemide 20 mg Tablet
20 mg PO Q48H Qty: 30 0RF
fluoxetine [Prozac] 10 mg capsule
10 mg PO DAILY Qty: 10 0RF
Rx Instructions:
wean to off
nitroglycerin 0.4 mg tablet, sublingual
0.4 mg sublingual Q5-15M PRN (Reason: chest pain) Qty: 7 0RF
Referrals:
Alisa Ureña MD [Family Provider] -
Interventions
Interventions:
*General Assessment Last Done: 01/03/24 01:55
*Neglect/Abuse Screening Last Done: 01/03/24 01:55
ED- Fall Risk Assessment Last Done: 01/03/24 01:41
OF-Mfayeb-Ahuvbkyhyc Assessment Last Done: 01/03/24 01:41
Discharge Date and Time
Print Language: FAROESE
--- NOTE | 2024-01-03 01:40 | EDRN ---
Patient came in with large hard stool in her rectum, was able to help patient get all of this stool out, large hard stool came out, patient reports feeling better after.
[2024-01-03 01:55] VITALS: BP 159/64
[2024-01-03 01:58] VITALS: BP 159/62
[2024-01-03 02:00] VITALS: BP 134/52
[2024-01-03 03:00] VITALS: BP 140/59
[2024-01-03 03:01] LABS: Albumin 4.1 g/dl (3.5-5.0)
[2024-01-03 03:12] LABS: ALT (SGPT) 22 U/L (0-35); AST (SGOT) 29 U/L (14-36); Alkaline Phosphatase 63 U/L (38-126); Blood Urea Nitrogen 24 mg/dl (7-17); Calcium 9.3 mg/dl (8.4-10.2); Carbon Dioxide 24 mmol/L (22-30); Chloride 95 mmol/L (98-107); Glucose 173 mg/dl (70-99); Potassium 4.4 mmol/L (3.5-5.1); Sodium 133 mmol/L (135-145); Total Bilirubin 0.8 mg/dl (0.2-1.3); Total Protein 7.1 g/dl (6.3-8.2); eGFR > 60.00
== END 2024-01-03 03:41 | disposition home or self-care (01) ==
LOC: EMR 01:52
PROVIDERS: EMERGENCY PHYSICIAN Student in an Organized Health Care Education/Training Program; FAMILY PHYSICIAN Internal Medicine
DX: K56.41 Fecal impaction (principal); F03.90 Unspecified dementia, unspecified severity, without behavioral disturbance, psychotic disturbance, mood disturbance, and anxiety; I10 Essential (primary) hypertension; E78.00 Pure hypercholesterolemia, unspecified; Z98.1 Arthrodesis status
CPT/HCPCS: 99284; 74018; 80053; 85025

== ENCOUNTER → 2024-07-11 11:22 | Outpatient (REF) | payer MEDICARE, OTHER, SELFPAY ==
[2024-07-11 16:21] LABS: Blood Urea Nitrogen 19 mg/dl (7-17); Calcium 9.1 mg/dl (8.4-10.2); Carbon Dioxide 29 mmol/L (22-30); Chloride 99 mmol/L (98-107); Glucose 105 mg/dl (70-99); Potassium 4.6 mmol/L (3.5-5.1); Sodium 133 mmol/L (135-145); eGFR > 60.00
== END ==
LOC: HWLAB 11:22
PROVIDERS: ATTENDING PHYSICIAN Internal Medicine
DX: E87.1 Hypo-osmolality and hyponatremia (principal); R73.01 Impaired fasting glucose; R73.09 Other abnormal glucose
CPT/HCPCS: 36415; 80048; 83036

== ENCOUNTER → 2024-12-01 12:46 | Outpatient (REF) | payer MEDICARE, OTHER, SELFPAY ==
[2024-12-01 16:24] LABS: ALT (SGPT) 19 U/L (0-35); AST (SGOT) 28 U/L (14-36); Albumin 4.3 g/dl (3.5-5.0); Alkaline Phosphatase 57 U/L (38-126); Blood Urea Nitrogen 17 mg/dl (7-17); Calcium 9.6 mg/dl (8.4-10.2); Carbon Dioxide 31 mmol/L (22-30); Chloride 97 mmol/L (98-107); Glucose 150 mg/dl (70-99); Potassium 4.5 mmol/L (3.5-5.1); Sodium 135 mmol/L (135-145); Total Protein 7.5 g/dl (6.3-8.2); eGFR > 60.00
[2024-12-02 10:37] LABS: Glycohemoglobin (HgbA1c) 5.8 % (4.0-5.6)
== END ==
LOC: HWLAB 12:46
PROVIDERS: ATTENDING PHYSICIAN Internal Medicine
DX: E87.1 Hypo-osmolality and hyponatremia (principal); R73.01 Impaired fasting glucose; I10 Essential (primary) hypertension
CPT/HCPCS: 36415; 80053; 83036